=== PATIENT | female | born 1955 | race Caucasian/White ===

== ENCOUNTER → 2018-10-26 15:30 | Outpatient (CLI) | payer OTHER, SELFPAY ==
[2018-10-26 16:18] LABS: CKMB Relative Index 1.4 U/L (0-4.0); Creatine Kinase 69 U/L (26-192); Troponin I < 0.02 ng/ml (0.00-0.06)
[2018-10-26 18:35] LABS: Alanine Aminotransferase 29 U/L (12-78); Albumin/Globulin Ratio 1.3 (1.1-1.8); Alkaline Phosphatase 110 U/L (46-116); Anion Gap 12.8 mEq/L (5-15); Aspartate Amino Transferase 20 U/L (15-37); Bilirubin,Total 0.4 mg/dL (0.2-1.0); Blood Urea Nitrogen 20 mg/dL (7-18); Calcium 10.4 mg/dL (8.5-10.1); Carbon Dioxide 29 mmol/L (21.0-32.0); Chloride 103 mmol/L (98-107); Creatinine,Serum 0.69 mg/dL (0.55-1.02); Estimated Glomerular Filt Rate 86 ml/min (>60); GFR (African American) 104 ML/MIN (>60); Globulin 3.2 gm/dl (1.3-3.2); Glucose 88 mg/dL (74-106); Potassium 4.8 mmoL/L (3.5-5.1); Sodium 140 mmol/L (136-145); Total Protein,Serum 7.2 gm/dL (6.4-8.2)
[2018-10-28 08:52] LABS: Vitamin B12 606 pg/mL (232-1245); Vitamin D 25 Hydroxy 46.5 ng/mL (30.0-100.0)
== END ==
PROVIDERS: Visit Provider Physician Assistant
DX: R07.89 Other chest pain (principal); R53.83 Other fatigue; R06.83 Snoring
CPT/HCPCS: 36415; 80053; 82550; 82553; 82607; 82652; 84484; 93005

== ENCOUNTER → 2020-03-13 08:03 | Outpatient (CLI) | payer SELFPAY ==
--- NOTE | 2020-03-13 08:03 | CT_ITS ---
PROCEDURE: CT HEART W CALCIUM SCORE CLINICAL HISTORY: chest pain COMPARISON: No exams were available for comparison TECHNIQUE: Axial images obtained with sagittal and coronal reformats. All CT scans at the facility use one or more dose reduction, viz: automated exposure control, ma/kV adjustment per patient size (including targeted exams where dose is matched to indication, i.e. head), or iterative reconstruction technique. FINDINGS: The coronary artery calcium score is 26 indicating mild calcific plaque burden with moderate cardiovascular disease risk. There is minimal thickening of the pericardium anteriorly IMPRESSION: Mild calcific plaque burden with moderate cardiovascular disease risk Dictated b Chase Wisdom MD 03/13/2020 15:34 Chase Wisdom MD in [place] 03/13/2020 15:34
== END ==
PROVIDERS: PCP Family Medicine; Visit Provider Internal Medicine Cardiovascular Disease
DX: R06.00 Dyspnea, unspecified (principal); R07.9 Chest pain, unspecified
CPT/HCPCS: 75571

== ENCOUNTER → 2020-03-23 09:47 | Outpatient (CLI) | payer OTHER, SELFPAY ==
[2020-03-23 13:03] LABS: Coronavirus 19 IgG Antibody Negative (Negative); Coronavirus 19 IgM Antibody Negative (Negative)
== END ==
PROVIDERS: Visit Provider Internal Medicine Gastroenterology
DX: Z01.818 Encounter for other preprocedural examination (principal); Z12.11 Encounter for screening for malignant neoplasm of colon
CPT/HCPCS: 36415; 86328

== ENCOUNTER 2020-03-25 09:26 | Day surgery (SDC) | payer OTHER, SELFPAY ==
[2020-03-19 10:01] VITALS: BMI 23.3
[2020-03-25] VITALS (7 sets, daily range): BP systolic 72–159; BP diastolic 41–82; PULSE 59–79; RESP 16–18; TEMP 36.1–36.2; O2SAT 96–99
--- NOTE | 2020-03-25 10:54 | P.PCN_ITS ---
[facility] Procedure Note Procedure Note:: Colonoscopy Procedure Report: Colonoscopy with cold snare polypectomy Endoscopist: Keith Rothman II, MD Referring physician: Humza Echols MD Date of Procedure: March 25, 2020 Equipment: Olympus 180 variable stiffness pediatric colonoscope Sedation: MAC sedation Indication: Mrs. Sinclair is a 64-year-old female who is here for follow-up screening/surveillance colonoscopy secondary to a personal history of colon polyps. This is her fourth colonoscopy and her last colonoscopy was 5 years ago at which time a polyp was removed. She states that on each prior colonoscopy she has had one polyp which was removed. She does state that her mother had uterine cancer at age 84. The patient reports no abdominal pain, weight loss, change in her bowel habits or rectal bleeding. She does take a probiotic daily that does help to keep her bowel function regular. Procedure: Prior to the procedure, a history and physical exam was performed, and patient's medications and allergies were reviewed. The risks, benefits and alternatives of the sedation and procedure were discussed with the patient. All questions were answered and informed consent was obtained. The patient was brought to the procedure room. Patient identification and proposed procedure were verified by the physician and the nurse. The patient was placed in a left lateral decubitus position and the scope was passed under direct vision. Throughout the procedure, the patient's blood pressure, pulse, and oxygen saturations were mo nitored continuously. The colonoscopy was accomplished without difficulty. The patient tolerated the procedure well. Findings: On digital rectal examination there was normal rectal tone. There were no external hemorrhoids. The colonoscope was introduced through the anal canal to the rectum and advanced to the cecum. The ileocecal valve and appendiceal orifice were identified. The scope was advanced a short distance into the ileum which appeared grossly normal. The scope was then withdrawn into the colon. There was a diminutive 5 mm polyp in the cecum. There was another 3 mm polyp in the descending colon. Both of these polyps were removed via cold snare polypectomy. The remainder of the ascending, transverse and descending colon were normal. There were scattered diverticuli throughout the descending and sigmoid colon (LEFT colon). The rectum itself was normal. Upon retroflexion within the rectum there were grade 1-2 internal hemorrhoids. The preparation was excellent throughout with [place] Preparation Score of 9. The cecal time was 12 minutes. Impression: 1. Diminutive colonic polyps x2 2. Left-sided diverticulosis 3. Grade 1-2 internal hemorrhoids Plan: I will follow up the polyp pathology and recommend repeat colonoscopy again in 5 -10 years based upon the polyp histology. I would encourage fiber supplementation on a long-term daily maintenance basis.
--- NOTE | 2020-03-25 11:05 | HMH.ANESCL ---
[facility] Anesthesia Checklist - Patient Identification Patient Identification: Arm Band, Verbal (Name & ) - Structural Data Admitted From: Home Planned Operative Procedure/s: Colonoscopy Consent for Planned Operative Procedure(s) Verified: Yes Verified Documents: Surgical Consent, History and Physical - NPO Status Verified Time NPO: 00:00 - Chart Verification Results Verified: None - Additional verifications Patient : No Anesthesia Reactions: No - Airway Assessment C-Spine Mobility Assessed: Yes TMJ Mobility Assessed: Yes Dentition: Good Dentition - Neurological Assessment Level of Consciousness: Awake, Alert, Appropriate, Follows Commands Hx Seizures: No Numbness or tingling in extremities: No - Anesthesia Plan Anesthesia Risk discussed: Yes Anesthesia Plan: Verified ASA Class: III Anesthesia Type: MAC [facility] History I have reviewed the patient's past medical history: Yes Medical History: Reports:: Cancer (BREAST RIGHT X2), Hypertension Denies:: Diabetes Mellitus Type 1, Diabetes Mellitus Type 2, Internal Pacemaker, MRSA, Seizures *Have you ever received a pneumonia vaccine?: No *Have you received a flu vaccine this season?: Yes Comment:: BRYANNA Anesthesia experience/problems:: No prior complications Laterality Cases: Right: Breast Biopsy, Lumpectomy, Bilateral: Tonsillectomy Other Surgeries: No: Pacemaker Amputation: No Fractures: No - *Social History Last grade of school completed: Advanced degree Smoking Status: Former smoker #Yrs smoked (if former smoker): 37 Alcohol Intake: current Alcohol Intake Frequency:: a few times a week Substance Use Type: former substance user, marijuana *Occupational Status:: retired Housing: house *Travel in the last 8 weeks: None Family Hx:: Cancer, Hypertension, Stroke
== END 2020-03-25 11:50 | disposition home or self-care (01) ==
LOC: OUTP 09:27
PROVIDERS: PCP Family Medicine; Visit Provider Internal Medicine Gastroenterology
PROC: 0DJD8ZZ Inspection of Lower Intestinal Tract, Via Natural or Artificial Opening Endoscopic (ICD-10-PCS; CPT 45378; principal; 2020-03-25 10:30)
DX: Z12.11 Encounter for screening for malignant neoplasm of colon (principal); K63.5 Polyp of colon; K57.30 Diverticulosis of large intestine without perforation or abscess without bleeding; K64.0 First degree hemorrhoids; Z80.59 Family history of malignant neoplasm of other urinary tract organ; I10 Essential (primary) hypertension; Z85.3 Personal history of malignant neoplasm of breast; Z90.89 Acquired absence of other organs; Z87.891 Personal history of nicotine dependence; F12.11 Cannabis abuse, in remission; Z82.3 Family history of stroke; Z82.49 Family history of ischemic heart disease and other diseases of the circulatory system
CPT/HCPCS: 45385; J2704

== ENCOUNTER → 2020-11-11 18:11 | Outpatient (CLI) | payer OTHER, SELFPAY ==
[2020-11-11 19:15] LABS: Alanine Aminotransferase 18 U/L (12-78); Albumin Level 4.5 g/dl (3.5-5.0); Albumin/Globulin Ratio 1.7 (1.1-1.8); Alkaline Phosphatase 134 U/L (38-126); Amylase 58 U/L (30-110); Anion Gap 12.4 mEq/L (5-15); Aspartate Amino Transferase 25 U/L (14-36); Bilirubin,Total 0.4 mg/dl (0.2-1.3); Blood Urea Nitrogen 14 mg/dl (7-17); Calcium 9.8 mg/dl (8.4-10.2); Carbon Dioxide 27 mmol/L (22.0-30.0); Chloride 103 mmol/L (98-107); Estimated Glomerular Filt Rate 84 ml/min (>60); GFR (African American) 102 ML/MIN (>60); Globulin 2.6 g/dL (1.3-3.2); Glucose 100 mg/dl (74-100); Lipase 110 U/L (23-300); Potassium 4.4 mmoL/L (3.5-5.1); Sodium 138 mmol/L (136-145); Total Protein,Serum 7.1 g/dl (6.3-8.2)
== END ==
PROVIDERS: Visit Provider Family Medicine
DX: I25.10 Atherosclerotic heart disease of native coronary artery without angina pectoris (principal); E78.5 Hyperlipidemia, unspecified; I10 Essential (primary) hypertension
CPT/HCPCS: 80053; 82150; 83690

== ENCOUNTER → 2020-12-03 09:09 | Outpatient (CLI) | payer SELFPAY ==
--- NOTE | 2020-12-03 09:11 | US_ITS ---
PROCEDURE: US ABDOMEN LIMITED CLINICAL INDICATION: ABD PAIN, ACUTE, RUQ COMPARISON: US RUQ US RUQ-(ABD LTD)1ORGAN/QUAD/FU from 06/11/2014 FINDINGS: PANCREAS: Unremarkable. No obvious mass or abnormal fluid collection. No ductal dilatation LIVER: No focal liver lesions demonstrated. Homogeneous echogenicity. No intrahepatic biliary ductal dilatation evident. There is appropriate direction of blood flow within a non dilated portal vein RIGHT KIDNEY: Unremarkable. Normal size and echogenicity. No hydronephrosis GALLBLADDER: No gallstones, gallbladder wall thickening, pericholecystic fluid, or biliary dilatation. IMPRESSION: Unremarkable limited abdominal ultrasound as detailed above disc Dictated by: Chase Wisdom MD 12/03/2020 17:11 Chase Wisdom MD in [place] 12/03/2020 17:11
== END ==
PROVIDERS: PCP Family Medicine; Visit Provider Nurse Practitioner Family
DX: R10.11 Right upper quadrant pain (principal)
CPT/HCPCS: 76705

== ENCOUNTER → 2021-06-23 14:48 | Outpatient (CLI) | payer MEDICARE, OTHER, SELFPAY ==
[2021-06-23 15:27] LABS: Adenovirus,PCR Not Detected (NotDetected); Bordetella Pertussis Not Detected (NotDetected); Chlamydophila Pneumoniae, PCR Not Detected (NotDetected); Coronavirus 19, PCR Not Detected (NotDetected); Coronavirus 229E Not Detected (NotDetected); Coronavirus NL63 Not Detected (NotDetected); Coronavirus OC43 Not Detected (NotDetected); Coronovirus HKU1,PCR Not Detected (NotDetected); Human Metapneumovirus Not Detected (NotDetected); Influenza A, PCR Not Detected (NotDetected); Influenza AH1, 2009 Not Detected (NotDetected); Influenza AH1, PCR Not Detected (NotDetected); Influenza AH3,PCR Not Detected (NotDetected); Influenza B, PCR Not Detected (NotDetected); Mycoplasma Pneumoniae, PCR Not Detected (NotDetected); Parainfluenza 1, PCR Not Detected (NotDetected); Parainfluenza 2, PCR Not Detected (NotDetected); Parainfluenza 3, PCR Not Detected (NotDetected); Parainfluenza 4, PCR Not Detected (NotDetected); Respiratory Syncytial Virus Not Detected (NotDetected)
[2021-06-23 16:29] LABS: Basophils # 0.1 K/mm3 (0-0.2); Basophils % 0.9 % (0.1-2.0); Eosinophils # 0.2 K/mm3 (0.0-0.4); Eosinophils % 2.2 % (0.1-12.0); Hematocrit 41.3 % (37.0-47.0); Hemoglobin 13.7 g/dL (12.2-16.2); Lymphocytes # 2.7 K/mm3 (0.7-4.5); Lymphocytes % 34.6 % (10-50); Mean Corpuscular HGB Conc 33.2 g/dL (31.8-35.4); Mean Corpuscular Hemoglobin 31.1 pg (27.0-31.2); Mean Corpuscular Volume 93.7 fl (81-99); Mean Platelet Volume 8.5 fl (7.4-10.4); Monocytes # 0.4 K/mm3 (0.1-1.0); Monocytes % 5.5 % (1.7-9.3); Neutrophils # 4.4 K/mm3 (1.8-7.8); Neutrophils % 56.7 % (37.0-80.0); Platelet Count 305 K/mm3 (142-424); Red Cell Distribution Width 14.2 % (11.5-17.5); White Blood Count 7.7 K/mm3 (4.8-10.8)
[2021-06-23 17:18] LABS: Rhinovirus/Enterovirus Detected (NotDetected)
== END ==
PROVIDERS: PCP Family Medicine; Visit Provider Family Medicine
DX: Z20.822 Contact with and (suspected) exposure to COVID-19 (principal); B34.1 Enterovirus infection, unspecified
CPT/HCPCS: 85025; 87581; 87632; 87798; C9803; U0003; U0005

== ENCOUNTER → 2021-07-23 16:52 | Outpatient (CLI) | payer MEDICARE, OTHER, SELFPAY | PROVIDERS: PCP Family Medicine; Visit Provider Nurse Practitioner Family | DX: G47.33 Obstructive sleep apnea (adult) (pediatric) (principal); G47.00 Insomnia, unspecified; R06.83 Snoring; R40.0 Somnolence | CPT/HCPCS: G0399 ==

== ENCOUNTER → 2021-07-24 07:10 | Outpatient (CLI) | payer MEDICARE, OTHER, SELFPAY ==
--- NOTE | 2021-07-24 | CA_ITS ---
APPROVED REPORT Exam: Exercise Treadmill Technologist: Milagro Spence, Ht: 5 ft 6 in Wt: 153 lbs BSA: 1.78 m2 HR: 58 bpm BP: 162/78 mmHg Rhythm: NSR, PVC Medical History Medical History: HTN Medications: Omeprazole,,,,, Aspirin,,,,, Latanoprost,,,,, Losartan HCTZ,,,,, Toprol XL,,,,, Multivitamin,,,,, Cardiac Risk Factors: HTN Stress Test Details Test: Harrison HR Resting HR: 68 bpm Max Heart Rate (APMHR): 155.216265 bpm Max HR Achieved: 126 bpm Target HR (85% APMHR): 131.773772 bpm % of APMHR: 81.29 Recovery HR: 98 bpm BP Resting BP: 156/83 mmHg Max BP: 204/80 mmHg Recovery BP: 206.0/80.0 mmHg ECG Resting ECG: NSR, PVC Clinical Exercise duration: 09:01 min Highest Stage Achieved: Exercise capacity: 10.1 METs Stress ECG Conclusion Pt exercised on harrison protocol for a total of 9 minutes. No CP noted. Occasional PVC noted. Allowing for motion artifact, the ST response to exercise appears to be within normal. Normal GXT to HR achieved, 81% of PM. Blunted HR response on beta felipe. Myoview images reported separately. Test Summary Stage 3 02:00 14.0 3.4 122 . . . Myoview Injected REST . . . . . . . Standing REST 04:45 0.0 0.0 68 . 156/ 83 . . Stage 1 01:00 10.0 1.7 91 . . . . Stage 1 02:00 10.0 1.7 96 . . . . Stage 1 03:00 10.0 1.7 93 . 172/ 96 . . Stage 2 01:00 12.0 2.5 101 . . . . Stage 2 02:00 12.0 2.5 102 . . . . Stage 2 03:00 12.0 2.5 107 . 188/ 88 . . Stage 3 01:00 14.0 3.4 119 . . . . Stage 3 . . . . . . . Myoview Injected Stage 3 02:00 14.0 3.4 122 . . . . Stage 3 03:00 14.0 3.4 126 . . . . Stage 4 00:01 16.0 4.2 126 . . . Stop exercise at 09:01 RECOVERY 01:00 0.0 0.0 97 . . . . RECOVERY 02:00 0.0 0.0 96 . 204/ 80 . . RECOVERY 03:00 0.0 0.0 85 . 204/ 80 . . RECOVERY 04:00 0.0 0.0 79 . 155/ 80 . . RECOVERY 05:00 0.0 0.0 79 . 159/ 86 . . RECOVERY 05:18 0.0 0.0 81 . 159/ 86 . . Electronically signed by : Hernesto Kothari MD 07/24/2021 13:33:46
--- NOTE | 2021-07-24 07:11 | NM_ITS ---
APPROVED REPORT Exam: Nuclear Stress Test Patient Location: Outpatient Stress Tech: Milagro CASTANEDA Tech:Alejandra Almonte GORGEChanell RT(R)(N) Ht: 5 ft 5 in Wt: 150 lbs Bra Size: 38c HR: 58 bpm BP: 162/78 mmHg BSA: 1.75 m2 BMI: 24.9 History: short of breath..palpitations..fatigue Procedure: Patient exercised on Harrison protocol 9:00 minutes and sec, resting heart rate 58 bpm, resting blood pressure 162/78 mmHg, with exercise maximum heart rate achived was 126 bpm which is 81 % of the maximum predicted heart rate and blood pressure was 206/80 mmHg. Test was stopped due to soa..fatigue. Patient denied any complaint of chest pain. Patient has good exercise capacity, achieved 10.1 METs of workload on treadmill, the blood pressure response to exercise was Hypertensive. Electrocardiogram Resting electrocardiogram shows sinus rhythm, with exercise there is less than 1.[address] segment depression noted from the baseline EKG. The EKG portion of the exercise Myoview is nondiagnostic as patient did not achieve the target heart rate. Cardiac Stress and Resting SPECT Images: Cardiac Stress and Resting SPECT images were obtained using technetium 99m Myoview 32.9 mCi stress and 10.14 mCi at rest. Gated SPECT for analysis of segmental wall motion and calculation of the ejection fraction also done. Cardiac stress and resting SPECT images show a mild fixed defect in the anterior wall with normal contractility on the gated SPECT is likely secondary to soft tissue attenuation from the breast no reversible ischemia seen. Computer derived ejection fraction is 59% with no regional wall motion abnormality. Conclusion: 1. The EKG portion of the exercise Myoview was nondiagnostic as patient did not achieve the target heart rate, patient has good exercise capacity achieved 10.1 METs of workload on treadmill, the blood pressure response to exercise was hypertensive there was no exercise-induced chest discomfort. 2. No scintigraphic evidence of reversible ischemia seen, computer derived ejection fraction is 59% with no regional wall motion abnormality, right ventricle is normal size and contractility. Electronically signed by : Hernesto Kothari MD 07/24/2021 13:46:27
--- NOTE | 2021-07-24 08:04 | CA_ITS ---
APPROVED REPORT EXAM: Comprehensive 2D, Doppler, and color-flow Echocardiogram Cattle Rancher: Joslyn Landa RVT Ht: 5 ft 6 in Wt: 153lbs BSA: 1.78 BP: 125/67 mmHg Indications: CAD,CP,MURMUR,SOA,DENG,HTN,EX SMOKER 2D Dimensions LVOT 2.02 cm (M/F) 1.5-2.5 LA Volume 29.10 mL LA Volume Index 16.34 mL/m2 (M/F) 16-34 M-Mode Dimensions RVDd 2.07 cm (0.9-2.6) LA Diam 3.79 cm (1.9-4.0) LVDd 4.75 cm (3.5-5.7) Ao Diam 3.09 cm (2.0-3.7) LVDs 2.82 cm (3.5-5.7) IVSd 0.93 cm (0.6-1.1) PWd 0.57 cm (0.6-1.1) EF (Teich) 71.30% FS 40.60% EDV (Teich) 104.90 mL TAPSE 2.97 (<1.7) ESV (Teich) 30.10 mL LV Diastology E Decel Time 150.00 (160-240 msec) E/A Ratio 0.8 MED E' 5.90 (< 7 cm/sec) E'/MED E' Ratio 12.95 (>14) LAT E' 9.40 (<10 cm/sec) E/LAT E' Ratio 8.13 (>14) Aortic Valve AI PHT 704.00 ms Mitral Valve MV E Max Edinson. 76.00 (40-130 cm/s) MV A Velocity 94.00 (40-130 cm/s) E/A Ratio 0.81 MV Decel. Time 150.00 (160-240 ms) MV PHT 44.00 ms Pulmonary Valve PV Peak Velocity 72.00 (50-150 cm/s) Tricuspid Valve TR P. Velocity 252.00 cm/s RAP Estimate 10.00 mmHg RVSP 35.40 mmHg Left Ventricle Left atrium is mildly enlarged, left ventricle is normal size, mild concentric left ventricular ejection fraction 55% with no regional wall motion abnormality, grade 1 diastolic dysfunction seen without tissue Doppler evidence of raise left atrial pressure. Right Ventricle Right atrium and right ventricle are mildly enlarged with normal contractility. Aortic Valve Aortic valve is minimally thickened and calcified without aortic stenosis, there is mild aortic insufficiency. Mitral Valve Mitral valve is grossly normal, there is mild mitral regurgitation. Tricuspid Valve Tricuspid grossly normal, there is mild tricuspid regurgitation, tricuspid regurgitation jet velocity is inadequate for calculation of the right ventricular systolic pressure. Pulmonic Valve Pulmonic valve is poorly visualized. Great Vessels Aortic root is normal size. Inferior vena cava normal size with normal inspiratory collapse. Pericardium No significant pericardial effusion noted. Conclusion 1. Mild biatrial enlargement, normal left size, mild concentric left ventricular hypertrophy, visually estimated ejection fraction 55% with no regional wall motion abnormality, grade 1 diastolic dysfunction seen without tissue Doppler evidence of raise left atrial pressure. 2. Mild aortic, mild mitral and tricuspid regurgitation. 3. No significant pericardial effusion noted. 4. Inferior vena cava normal size with normal inspiratory collapse. Electronically signed by : Hernesto Kothari MD 07/24/2021 14:08:58
--- NOTE | 2021-07-24 08:04 | CA_ITS ---
APPROVED REPORT Bakery Deliverer: Joslyn Landa RVT Laterality: Bilateral Study Quality: Good Indications: left carotid bruit Risk Factors Hypertension: Smoking Doppler Spectral Velocity Analysis ECA (R) 80.20/6.40 cm/s ECA (L) 59.90/8.80 cm/s dICA (R) 136.90/34.20 cm/s dICA (L) 112.60/31.40 cm/s Nela (R) 87.70/21.40 cm/s Nela (L) 92.80/26.30 cm/s pICA (R) 85.50/22.50 cm/s pICA (L) 74.90/18.20 cm/s dCCA (R) 66.30/13.90 cm/s dCCA (L) 64.20/11.80 cm/s pCCA (R) 88.80/11.80 cm/s pCCA (L) 113.30/15.00 cm/s Vert (R) 44.90/11.80 cm/s Vert (L) 42.80/12.80 cm/s ICA/CCA 2.06 ICA/CCA 1.75 Findings Study suggests less than 20% stenosis of the right internal cartoid artery. Study suggests less than 20% stenosis of the left internal cartoid artery. Antegrade flow seen bilateral vertebral arteries. Bilateral cartoid arteries are tortuous. Right thyroid nodules seen. Conclusion Study suggests less than 20% stenosis of the right internal cartoid artery. Study suggests less than 20% stenosis of the left internal cartoid artery. Antegrade flow seen bilateral vertebral arteries. Bilateral cartoid arteries are tortuous. Right thyroid nodules seen. Electronically signed by : Chase Wisdom MD 07/24/2021 16:12:08
== END ==
PROVIDERS: PCP Family Medicine; Visit Provider Nurse Practitioner Family
DX: E78.2 Mixed hyperlipidemia (principal); I10 Essential (primary) hypertension; I20.9 Angina pectoris, unspecified; R09.89 Other specified symptoms and signs involving the circulatory and respiratory systems; R06.09 Other forms of dyspnea
CPT/HCPCS: 78452; 93017; 93306; 93880; A9502

== ENCOUNTER → 2021-08-05 09:51 | Outpatient (CLI) | payer MEDICARE, OTHER, SELFPAY ==
--- NOTE | 2021-08-05 09:55 | XR_ITS ---
PROCEDURE INFORMATION: Exam: XR Chest Exam date and time: 08/05/2021 9:55 AM Age: 66 years old Clinical indication: Cough and shortness of breath; Additional info: Covid outpatient TECHNIQUE: Imaging protocol: XR of the chest. Views: 1 view. COMPARISON: No relevant prior studies available. FINDINGS: Lungs: COPD and interstitial prominence. No acute infiltrate. Pleural spaces: No pleural effusion. Heart/Mediastinum: Normal configuration of the heart. Bones/joints: Degenerative change. IMPRESSION: COPD and interstitial prominence.
[2021-08-05 10:39] LABS: Adenovirus,PCR Not Detected (NotDetected); Bordetella Pertussis Not Detected (NotDetected); Chlamydophila Pneumoniae, PCR Not Detected (NotDetected); Coronavirus 19, PCR Not Detected (NotDetected); Coronavirus 229E Not Detected (NotDetected); Coronavirus NL63 Not Detected (NotDetected); Coronavirus OC43 Not Detected (NotDetected); Coronovirus HKU1,PCR Not Detected (NotDetected); Human Metapneumovirus Not Detected (NotDetected); Influenza A, PCR Not Detected (NotDetected); Influenza AH1, 2009 Not Detected (NotDetected); Influenza AH1, PCR Not Detected (NotDetected); Influenza B, PCR Not Detected (NotDetected); Mycoplasma Pneumoniae, PCR Not Detected (NotDetected); Parainfluenza 1, PCR Not Detected (NotDetected); Parainfluenza 2, PCR Not Detected (NotDetected); Parainfluenza 3, PCR Not Detected (NotDetected); Parainfluenza 4, PCR Not Detected (NotDetected); Respiratory Syncytial Virus Not Detected (NotDetected); Rhinovirus/Enterovirus Not Detected (NotDetected)
[2021-08-05 10:51] LABS: Basophils # 0.1 K/mm3 (0-0.2); Basophils % 1.3 % (0.1-2.0); Hematocrit 47.8 % (37.0-47.0); Hemoglobin 15.3 g/dL (12.2-16.2); Lymphocytes # 0.7 K/mm3 (0.7-4.5); Lymphocytes % 10.5 % (10-50); Mean Corpuscular HGB Conc 32.1 g/dL (31.8-35.4); Mean Corpuscular Volume 93.4 fl (81-99); Mean Platelet Volume 8.4 fl (7.4-10.4); Monocytes # 0.3 K/mm3 (0.1-1.0); Monocytes % 4.4 % (1.7-9.3); Neutrophils # 5.4 K/mm3 (1.8-7.8); Neutrophils % 83.8 % (37.0-80.0); Platelet Count 294 K/mm3 (142-424); Red Blood Count 5.11 M/mm3 (4.20-5.40); Red Cell Distribution Width 13.3 % (11.5-17.5); White Blood Count 6.4 K/mm3 (4.8-10.8)
[2021-08-05 12:47] LABS: Influenza AH3,PCR Detected (NotDetected)
== END ==
PROVIDERS: PCP Nurse Practitioner; Visit Provider Nurse Practitioner
DX: Z20.822 Contact with and (suspected) exposure to COVID-19 (principal)
CPT/HCPCS: 36415; 71045; 85025; 87581; 87632; 87798; C9803; U0003; U0005

== ENCOUNTER 2021-08-05 10:13 | Emergency (ER) | payer MEDICARE, OTHER, SELFPAY ==
[2021-08-05 10:39] VITALS: BP 149/82; PULSE 103; RESP 18; TEMP 36.6; O2SAT 96; BMI 25.0
--- NOTE | 2021-08-05 10:40 | HMH.EDUTC ---
[facility] [place] Disposition Clinical Impression: Influenza A Acute bronchitis Qualifiers: Bronchitis organism: unspecified organism Qualified Code(s): J20.9 - Acute bronchitis, unspecified Disposition: Home, Self-Care Condition on Discharge: Good Instructions: DI for Acute Bronchitis, DI for COVID-19 (Suspected or Confirmed ), Preventing the Spread of Coronavirus Discharge Instructions Additional Instructions: Drink plenty of fluids. Take tylenol or ibuprofen for pain or fever. Take the medications that were prescribed by your doctor as directed. Follow up with your regular doctor. GO TO THE ER FOR ANY WORSENING SYMPTOMS Quarantine until you know the results of your covid-19 test. If it is positive, the health department should call you and give you further instructions about your length of Quarantine and other things. Notify your school or workplace of your results and follow their instructions regarding return to work/school. Prescriptions: Fluticasone Propionate [Flonase 50mcg nasal spray 16gm] 2 spr NS DAILY 30 Days #120 each Transmission [facility]: [facility] Montelukast Sodium 10 mg PO DAILY 90 Days #90 tab Transmission Status: [facility] Referrals: Partha Echols MD [Primary Care Provider] - Time of Disposition: 11:27 Medical Decision Making - Medical Records Medical records reviewed: No: I reviewed the patient's medical records. - Simon Inquiry Pt receiving controlled substance: No Vital Signs: 08/05/21 10:39 08/05/21 10:45 Temperature 97.8 F 97.8 F Temperature Source Oral Pulse Rate 103 H Pulse Rate [Left] 103 H Respiratory Rate 18 18 Blood Pressure 149/82 H Blood Pressure [Right Arm] 149/82 H Blood Pressure Mean [Right Arm] 104 02 Sat by Pulse Oximetry 96 - Lab Data Lab results reviewed: Yes: I reviewed the patient's lab results. [facility] [place] HPI - General Stated complaint: congestion,SOA Time Seen by Provider: 08/05/21 10:41 - History of Present Illness Provider Complaint: She came in to have her lungs listened to and her vital signs checked. She states that she has had multiple test this morning already that were ordered by her primary care physician, but she is congested and wants someone to check her lungs. She states that she feels like she has the flu. She started feeling like this around 3 days ago. She has been very busy with selling her house so she has not had time to get checked before today. She has been fully vaccinated for covid-19. - Related Data Home Medications Medication Instructions Recorded Confirmed rwsvlcum-vhebiai-dmzm-lutein tablet 1 mcg PO DAILY tab 10/27/18 07/17/21 Aspirin 81 mg PO DAILY 03/19/20 07/17/21 latanoprost 0.005 % eye drops 1 drp OPHTHALMIC HS 07/17/21 07/17/21 Previous Rx's Medication Instructions Recorded metoprolol succinate 25 mg 25 mg PO DAILY #30 tab 01/16/21 tablet,extended release 24 hr losartan 50 mg-hydrochlorothiazide 1 tab PO DAILY #30 tab 02/27/21 12.5 mg tablet omeprazole 40 mg capsule,delayed See Rx Instructions .ROUTE 04/08/21 release .COMPLEX #90 capsule Fluticasone Propionate [Flonase 2 spr NS DAILY 30 Days #120 each 08/05/21 50mcg nasal spray 16gm] Montelukast Sodium 10 mg PO DAILY 90 Days #90 tab 08/05/21 Oseltamivir Phosphate [Tamiflu 75 mg PO BID #10 cap 08/05/21 75mg Capsule] Allergies Allergy/AdvReac Type Severity Reaction Status Date / Time No Known Allergies Allergy Verified 07/17/21 10:08 [facility] History - Hepatitis A Screen Attestation statement:: This patient has been screened for Hepatitis A risk factors. I have reviewed the patient's past medical history: Yes Medical History: Reports:: Cancer, Hypertension Denies:: Diabetes Mellitus Type 1, Diabetes Mellitus Type 2, Internal Pacemaker, MRSA, Seizures Comment: BRYANNA Laterality Cases: Right: Breast Biopsy, Lumpectomy, Bilateral: Tonsillectomy Other Surgeries: No:
[2021-08-05 10:45] VITALS: BP 149/82; PULSE 103; RESP 18; TEMP 36.6
== END 2021-08-05 11:38 | disposition home or self-care (01) ==
PROVIDERS: Emergency Provider Nurse Practitioner Family; PCP Family Medicine
DX: J10.1 Influenza due to other identified influenza virus with other respiratory manifestations (principal)
CPT/HCPCS: G0463; 36415; 71045; 85025; 87581; 87632; 87798; 99202; C9803; U0003; U0005

== ENCOUNTER → 2022-06-29 14:24 | Outpatient (CLI) | payer MEDICARE, OTHER, SELFPAY ==
[2022-06-29 15:43] LABS: Coronavirus 19, PCR Not Detected (NotDetected); Influenza A, PCR Not Detected (NotDetected); Influenza B, PCR Not Detected (NotDetected)
[2022-06-29 15:55] LABS: Basophils # 0.1 K/mm3 (0-0.2); Eosinophils # 0.2 K/mm3 (0.0-0.4); Eosinophils % 2.4 % (0.1-12.0); Hematocrit 41.5 % (37.0-47.0); Hemoglobin 13.6 g/dL (12.2-16.2); Lymphocytes # 2.4 K/mm3 (0.7-4.5); Lymphocytes % 26.5 % (10-50); Mean Corpuscular HGB Conc 32.8 g/dL (31.8-35.4); Mean Corpuscular Hemoglobin 30.3 pg (27.0-31.2); Mean Corpuscular Volume 92.4 fl (81-99); Mean Platelet Volume 8.2 fl (7.4-10.4); Monocytes # 0.5 K/mm3 (0.1-1.0); Monocytes % 5.8 % (1.7-9.3); Neutrophils # 5.9 K/mm3 (1.8-7.8); Neutrophils % 64.3 % (37.0-80.0); Platelet Count 294 K/mm3 (142-424); Red Blood Count 4.49 M/mm3 (4.20-5.40); Red Cell Distribution Width 13.9 % (11.5-17.5); White Blood Count 9.1 K/mm3 (4.8-10.8)
== END ==
PROVIDERS: PCP Family Medicine; Visit Provider Family Medicine
DX: Z20.822 Contact with and (suspected) exposure to COVID-19 (principal)
CPT/HCPCS: 36415; 85025; C9803; U0003; U0005

== ENCOUNTER → 2022-11-17 09:28 | Outpatient (CLI) | payer MEDICARE, OTHER, SELFPAY ==
[2022-11-17 10:39] LABS: Basophils # 0.1 K/mm3 (0-0.2); Basophils % 0.6 % (0.1-2.0); Eosinophils # 0.2 K/mm3 (0.0-0.4); Eosinophils % 2.8 % (0.1-12.0); Hematocrit 46.1 % (37.0-47.0); Lymphocytes # 2.1 K/mm3 (0.7-4.5); Lymphocytes % 26.7 % (10-50); Mean Corpuscular HGB Conc 32.5 g/dL (31.8-35.4); Mean Corpuscular Hemoglobin 29.1 pg (27.0-31.2); Mean Corpuscular Volume 89.7 fl (81-99); Mean Platelet Volume 8.5 fl (7.4-10.4); Monocytes # 0.5 K/mm3 (0.1-1.0); Monocytes % 5.8 % (1.7-9.3); Neutrophils # 5.1 K/mm3 (1.8-7.8); Neutrophils % 64.1 % (37.0-80.0); Platelet Count 247 K/mm3 (142-424); Red Blood Count 5.14 M/mm3 (4.20-5.40); Red Cell Distribution Width 13.6 % (11.5-17.5)
[2022-11-17 10:47] LABS: Chloride 101 mmol/L (98-107); Sodium 137 mmol/L (136-145)
[2022-11-17 10:49] LABS: Alanine Aminotransferase 39 U/L (12-78); Albumin Level 4.4 g/dl (3.5-5.0); Alkaline Phosphatase 120 U/L (38-126); Aspartate Amino Transferase 31 U/L (14-36); Bilirubin,Indirect 0.6 mg/dL (0.0-0.9); Bilirubin,Total 0.6 mg/dl (0.2-1.3); Bilirubin,Unconjugated 0.7 mg/dL (0.0-1.1); Blood Urea Nitrogen 18 mg/dl (7-17); Carbon Dioxide 30 mmol/L (22.0-30.0); Cholesterol 136 mg/dl (140-200); Estimated Glomerular Filt Rate 72 ml/min (>60); GFR (African American) 87 ML/MIN (>60); Total Protein,Serum 7.3 g/dl (6.3-8.2); Triglycerides 83 mg/dl (30-150); VLDL Cholesterol 17 mg/dL (0-40)
[2022-11-17 10:50] LABS: Calcium 9.4 mg/dl (8.4-10.2); Chol/HDL Ratio 1.9 (1-3.5); Glucose 96 mg/dl (74-100); HDL Cholesterol 71 mg/dl (40-60); Magnesium 2.2 mg/dl (1.6-2.3)
[2022-11-17 11:07] LABS: Free T4 (Free Thyroxine) 0.97 ng/dl (0.78-2.19)
[2022-11-17 11:09] LABS: Troponin I < 0.01 ng/ml (0.00-0.034)
[2022-11-17 11:20] LABS: Thyroid Stimulating Hormone 2.19 uIU/mL (0.465-4.68)
== END ==
PROVIDERS: PCP Family Medicine; Visit Provider Nurse Practitioner
DX: E78.2 Mixed hyperlipidemia (principal); I10 Essential (primary) hypertension; I25.10 Atherosclerotic heart disease of native coronary artery without angina pectoris; I49.8 Other specified cardiac arrhythmias; R00.2 Palpitations; R06.00 Dyspnea, unspecified; R07.9 Chest pain, unspecified; R42 Dizziness and giddiness; R53.83 Other fatigue
CPT/HCPCS: 36415; 80048; 80061; 80076; 83735; 84439; 84443; 84484; 85025; 93306

== ENCOUNTER 2022-12-04 18:44 | Emergency (ER) | payer MEDICARE, OTHER, SELFPAY ==
--- NOTE | 2022-12-04 18:41 | ECG_ITS ---
APPROVED REPORT Exam: Resting ECG HR:73 bpm ECG Measurements Heart Rate 73 AXES WI 192 P 59 QRSd 102 QRS -15 QT 395 T 66 QTc 421 Conclusion SINUS RHYTHM MODERATE VOLTAGE CRITERIA FOR LVH, CONSIDER NORMAL VARIANT [MEETS CRITERIA IN ONE OF: R(aVL), S(V1), R(V5), R(V5/V6)+S(V1)] BORDERLINE ECG UNCONFIRMED REPORT Electronically signed by : Galen Mir MD 12/05/2022 15:30:17
[2022-12-04 18:44] VITALS: BP 199/96; PULSE 76; RESP 20; TEMP 36.8; O2SAT 99; BMI 26.6
--- NOTE | 2022-12-04 18:49 | XR_ITS ---
PROCEDURE INFORMATION: Exam: XR Chest Exam date and time: 12/04/2022 7:09 PM Age: 67 years old Clinical indication: Other: Weakness TECHNIQUE: Imaging protocol: Radiologic exam of the chest. Views: 2 views. COMPARISON: CR XR CHEST PORTABLE 08/05/2021 9:59 AM FINDINGS: Lungs: Unremarkable. No consolidation. Pleural spaces: Unremarkable. No pleural effusion. No pneumothorax. Heart/Mediastinum: Unremarkable. No cardiomegaly. Bones/joints: Unremarkable. IMPRESSION: No acute findings.
[2022-12-04 18:59] LABS: Basophils % 0.5 % (0.1-2.0); Eosinophils # 0.1 K/mm3 (0.0-0.4); Eosinophils % 1.4 % (0.1-12.0); Hematocrit 43.8 % (37.0-47.0); Lymphocytes # 3.5 K/mm3 (0.7-4.5); Lymphocytes % 37.7 % (10-50); Mean Corpuscular Hemoglobin 28.9 pg (27.0-31.2); Mean Corpuscular Volume 90.2 fl (81-99); Mean Platelet Volume 7.8 fl (7.4-10.4); Monocytes # 0.5 K/mm3 (0.1-1.0); Monocytes % 5.6 % (1.7-9.3); Neutrophils # 5.1 K/mm3 (1.8-7.8); Neutrophils % 54.9 % (37.0-80.0); Platelet Count 254 K/mm3 (142-424); Red Blood Count 4.86 M/mm3 (4.20-5.40); Red Cell Distribution Width 13.8 % (11.5-17.5); White Blood Count 9.2 K/mm3 (4.8-10.8)
[2022-12-04 19:00] VITALS: BP 166/87; PULSE 70; RESP 14; O2SAT 97
[2022-12-04 19:08] LABS: Alanine Aminotransferase 48 U/L (12-78); Albumin Level 4.5 g/dl (3.5-5.0); Albumin/Globulin Ratio 1.5 (1.1-1.8); Alkaline Phosphatase 121 U/L (38-126); Anion Gap 13.6 mEq/L (5-15); Aspartate Amino Transferase 43 U/L (14-36); Bilirubin,Total 0.5 mg/dl (0.2-1.3); Blood Urea Nitrogen 13 mg/dl (7-17); Calcium 9.5 mg/dl (8.4-10.2); Carbon Dioxide 28 mmol/L (22.0-30.0); Chloride 99 mmol/L (98-107); Creatinine Clearance Estimated 63 mL/min (50-200); Estimated Glomerular Filt Rate 84 ml/min (>60); GFR (African American) 101 ML/MIN (>60); Glucose 115 mg/dl (74-100); Potassium 3.6 mmoL/L (3.5-5.1); Sodium 137 mmol/L (136-145); Total Protein,Serum 7.5 g/dl (6.3-8.2)
--- NOTE | 2022-12-04 19:15 | PC.NURSE ---
Pt gone to RAD via wheelchair
--- NOTE | 2022-12-04 19:21 | PC.NURSE ---
Pt back from RAD
[2022-12-04 19:22] LABS: Troponin I < 0.01 ng/ml (0.00-0.034)
--- NOTE | 2022-12-04 19:22 | PC.NURSE ---
Pt up to restroom. Dr. De Los Santos advised he did not want a urine specimen at this time.
--- NOTE | 2022-12-04 19:24 | HMH.EDGENADL ---
Discharge Plan Disposition Patient Disposition: Home, Self-Care Condition: Good Chief Complaint: Anxiety Prescriptions Prescriptions: No Action fukacmoc-tsgithd-qral-lutein tablet 1 mcg PO DAILY latanoprost 0.005 % drops 1 drp OPHTHALMIC HS fluticasone propionate 50 mcg/actuation spray,suspension 2 spray NS DAILY PRN metoprolol succinate [Toprol XL] 25 mg tablet extended release 24 hr 25 mg PO DAILY Qty: 90 3RF losartan-hydrochlorothiazide 50-12.5 mg tablet 1 tab PO DAILY Qty: 90 3RF omeprazole 40 mg capsule,delayed release(DR/EC) See Rx Instructions .ROUTE .COMPLEX Qty: 90 3RF Dose Instruction: TAKE ONE CAPSULE BY MOUTH DAILY Rx Instructions: TAKE ONE CAPSULE BY MOUTH DAILY atorvastatin [Lipitor] 20 mg tablet 20 mg PO DAILY Qty: 90 3RF aspirin 81 MG tablet,chewable 81 mg PO DAILY montelukast 10 MG tablet 10 mg PO DAILY 90 Days Qty: 90 1RF Referrals Follow up/Referrals: Partha Echols MD [Primary Care Provider] - See instructions Activity Restrictions/Add. Instructions Additional Instructions/Restrictions: At this time was felt you are safe to be discharged home. If new or worsening symptoms please not hesitate to return for continued evaluation. Please follow-up with cardiology as discussed. Clinical Impressions Clinical Impression: Dysphoric mood Discharge ED Provider: Ameya De Los Santos General Adult HPI General Chief complaint: Anxiety Stated complaint: uneasiness Time Seen by Provider: 12/04/22 19:10 Mode of Arrival: Ambulatory Source of Information: Patient Limitations: No Limitations Description of Symptoms (Recalled from ER Triage Doc. by RN): pt c/o weakness,dizzy and anixety that started about 4pm this afternoon. pt states has been seen in er 2 weeks ago and seen billing department supervisor. pt denies chest pain History of Present Illness HPI narrative: Patient is a 67-year-old female with past medical history of fluttering heart, palpitations, anxiety, hiatal hernia who presents emergency department for evaluation of uneasiness. Patient has had waxing and waning symptoms over the last few weeks. She describes as a general uneasiness in her thorax. She does not have true chest pain. She has taken a Xanax prior to arrival which is prescribed to her and has had some resolution of symptoms. Per chart review recent echocardiography shows ejection fraction of 60 to 65% with grade 1 diastolic dysfunction. Patient has been compliant with her blood pressure medications. Denies cough, dysuria, abdominal pain, chest pain. No other acute complaints at this time. Related Data Home Medications Medication Instructions Recorded Confirmed ivhhqvlh-vgaqimr-vzkq-lutein tablet 1 mcg PO DAILY Supplement 10/27/18 11/17/22 aspirin 81 mg chewable tablet 81 mg PO DAILY Blood thinner 03/19/20 11/17/22 latanoprost 0.005 % eye drops 1 drp ophthalmic (eye) HS 07/17/21 11/17/22 fluticasone propionate 50 2 spray intranasal DAILY PRN 02/19/22 11/17/22 mcg/actuation nasal spray,suspension Previous Rx's Medication Instructions Recorded montelukast 10 mg tablet 10 mg PO DAILY 90 days #90 tabs 08/05/21 losartan 50 mg-hydrochlorothiazide 1 tab PO DAILY #90 tabs 08/24/22 12.5 mg tablet metoprolol succinate 25 mg 25 mg PO DAILY #90 tabs 08/24/22 tablet,extended release 24 hr (Toprol XL) omeprazole 40 mg capsule,delayed See Rx Instructions .Route 08/24/22 release .COMPLEX #90 caps atorvastatin 20 mg tablet (Lipitor) 20 mg PO DAILY #90 tabs 11/23/22 Allergies Allergy/AdvReac Type Severity Reaction Status Date / Time No Known Allergies Allergy Verified 11/17/22 08:46 [facility] Disclaimer: The information contained in this section may have been updated after the patient was seen, as this information can be updated by other users. Medical History (Updated 12/04/22 @ 19:46 by Ameya De Los Santos MD) Chest pain Dizziness Dyspnea Fatigue
[2022-12-04 19:30] VITALS: BP 171/80; PULSE 68; RESP 15; O2SAT 98
--- NOTE | 2022-12-04 19:58 | PC.NURSE ---
Dr. De Los Santos at [facility]
[2022-12-04 20:32] VITALS: BP 163/88; PULSE 64; RESP 16; TEMP 36.9; O2SAT 98
== END 2022-12-04 20:33 | disposition home or self-care (01) ==
PROVIDERS: Emergency Provider Emergency Medicine; PCP Family Medicine
DX: R53.1 Weakness (principal); R42 Dizziness and giddiness; F41.9 Anxiety disorder, unspecified; Z87.891 Personal history of nicotine dependence
CPT/HCPCS: 71046; 80053; 84484; 85025; 93005; 99285

== ENCOUNTER → 2022-12-08 11:50 | Outpatient (CLI) | payer MEDICARE, OTHER, SELFPAY | PROVIDERS: PCP Family Medicine; Visit Provider Physician Assistant | DX: E78.2 Mixed hyperlipidemia (principal); I10 Essential (primary) hypertension; I25.10 Atherosclerotic heart disease of native coronary artery without angina pectoris; I49.8 Other specified cardiac arrhythmias; R00.2 Palpitations; R06.00 Dyspnea, unspecified; R07.9 Chest pain, unspecified; R42 Dizziness and giddiness; R53.83 Other fatigue | CPT/HCPCS: 78452; 93017; A9502 ==

== ENCOUNTER 2023-04-15 09:27 | Day surgery (SDC) | payer MEDICARE, OTHER, SELFPAY ==
[2023-03-18 13:59] VITALS: BMI 27.3
[2023-04-15] VITALS (7 sets, daily range): BP systolic 132–154; BP diastolic 65–75; PULSE 49–58; RESP 16–18; TEMP 36.2–36.3; O2SAT 97–100
--- NOTE | 2023-04-15 10:32 | P.PNANES_ITS ---
[facility] Disclaimer: The information contained in this section may have been updated after the patient was seen, as this information can be updated by other users. Medical History Chest pain Dizziness Dyspnea Fatigue Fluttering heart Generalized anxiety disorder History of breast cancer Left carotid bruit Palpitations Surgical History History of colonoscopy History of lumpectomy of right breast Family History Father Coronary artery disease Stroke Mother Cancer Sister Cancer, Onset Age: 65 Social History Smoking Status: Former smoker pack-years: 37 second hand exposure: No alcohol intake: current substance use type: former substance user and marijuana current occupational status: retired Travel in the last 8 weeks: None ([place]) household members: none housing: house current occupational exposures/hazards: No caffeine: Yes [facility] Anesthesia Checklist Patient Identification Patient Identification: Arm Band Structural Data Admitted From: Home Planned Operative Procedure/s: EGD Consent for Planned Operative Procedure(s) Verified: Yes Verified Documents: Surgical Consent and History and Physical NPO Status Verified Time NPO: 00:00 Additional verifications Anesthesia Reactions: No Airway Assessment Mallampati Score:: Class I C-Spine Mobility Assessed: Yes TMJ Mobility Assessed: Yes Dentition: Good Dentition Neurological Assessment Level of Consciousness: Awake and Alert Anesthesia Plan Anesthesia Risk discussed: Yes Anesthesia Plan: Verified ASA Class: II Anesthesia Type: MAC
--- NOTE | 2023-04-15 11:02 | HMH.SCOPE ---
Procedure: Date: 04/15/23 Patient Date of :: 1955 Procedure Performed:: Diagnostic EGD Indications:: Belching, GERD Performing Provider:: Shane Telles MD Referring Provider:: Shirley Telles APRN Sedation:: Propofol Procedure:: The gastroscope was gently passed through the incisoral orifice into the oral cavity and under direct visualization the esophagus was intubated. The endoscope was passed down the esophagus, through the stomach, and into the duodenum. Color, texture, mucosa, and anatomy of the esophagus, stomach, and duodenum were carefully examined with the scope. Findings:: Oropharynx: normal Esophagus: normal EG Junction: intact at 40 cm, No evidence of hiatus hernia Cardia: normal Fundus: normal Body: normal Antrum: normal Duodenal bulb: normal Duodenum (second and third portion): normal Impression: Overall normal EGD Belching symptoms secondary to aerophagia Recommendations:: F/U with PCP Complications:: None Estimated blood obtained (mL): 0 Colonoscopy Component Colonoscopy Component Was a colonoscopy performed during today's procedure?: No
== END 2023-04-15 12:00 | disposition home or self-care (01) ==
PROVIDERS: PCP Family Medicine; Visit Provider Internal Medicine Gastroenterology
PROC: 0DJ08ZZ Inspection of Upper Intestinal Tract, Via Natural or Artificial Opening Endoscopic (ICD-10-PCS; CPT 43235; principal; 2023-04-15 10:30)
DX: F45.8 Other somatoform disorders (principal); K58.9 Irritable bowel syndrome, unspecified; K21.9 Gastro-esophageal reflux disease without esophagitis
CPT/HCPCS: 43235

== ENCOUNTER → 2023-06-07 10:53 | Outpatient (CLI) | payer MEDICARE, OTHER, SELFPAY ==
[2023-06-07 14:38] LABS: Occult Blood,Stool Negative (Negative)
[2023-06-10 20:09] LABS: Calprotectin, Fecal <5 ug/g (0-120)
[2023-06-11 00:06] LABS: Pancreatic Elastase, Fecal 234 (>200)
== END ==
PROVIDERS: PCP Family Medicine; Visit Provider Nurse Practitioner
DX: K21.9 Gastro-esophageal reflux disease without esophagitis (principal); R19.7 Diarrhea, unspecified; Z85.3 Personal history of malignant neoplasm of breast
CPT/HCPCS: 82272; 82656; 83993; 87205; G0328

== ENCOUNTER → 2023-07-12 15:36 | Outpatient (CLI) | payer MEDICARE, OTHER, SELFPAY ==
[2023-07-12 16:08] LABS: Basophils % 0.5 % (0.1-2.0); Eosinophils # 0.2 K/mm3 (0.0-0.4); Eosinophils % 2.8 % (0.1-12.0); Hematocrit 41.4 % (37.0-47.0); Hemoglobin 13.4 g/dL (12.2-16.2); Lymphocytes # 2.5 K/mm3 (0.7-4.5); Lymphocytes % 35.9 % (10-50); Mean Corpuscular HGB Conc 32.4 g/dL (31.8-35.4); Mean Corpuscular Hemoglobin 30.3 pg (27.0-31.2); Mean Corpuscular Volume 93.6 fl (81-99); Monocytes # 0.4 K/mm3 (0.1-1.0); Neutrophils # 3.7 K/mm3 (1.8-7.8); Neutrophils % 54.8 % (37.0-80.0); Platelet Count 266 K/mm3 (142-424); Red Blood Count 4.42 M/mm3 (4.20-5.40); Red Cell Distribution Width 13.9 % (11.5-17.5); White Blood Count 6.8 K/mm3 (4.8-10.8)
[2023-07-12 16:46] LABS: Alanine Aminotransferase 31 U/L (12-78); Albumin Level 4.2 g/dl (3.5-5.0); Alkaline Phosphatase 100 U/L (38-126); Aspartate Amino Transferase 32 U/L (14-36); Bilirubin,Direct 0.1 mg/dl (0.0-0.4); Bilirubin,Indirect 0.2 mg/dL (0.0-0.9); Bilirubin,Total 0.3 mg/dl (0.2-1.3); Bilirubin,Unconjugated 0.2 mg/dL (0.0-1.1); Blood Urea Nitrogen 12 mg/dl (7-17); Calcium 9.3 mg/dl (8.4-10.2); Carbon Dioxide 25 mmol/L (22.0-30.0); Chloride 102 mmol/L (98-107); Cholesterol 170 mg/dl (140-200); Estimated Glomerular Filt Rate 83 ml/min (>60); GFR (African American) 101 ML/MIN (>60); Glucose 90 mg/dl (74-100); HDL Cholesterol 85 mg/dl (40-60); Potassium 4.5 mmoL/L (3.5-5.1); Total Protein,Serum 6.8 g/dl (6.3-8.2); Triglycerides 149 mg/dl (30-150); VLDL Cholesterol 30 mg/dL (0-40)
[2023-07-12 16:57] LABS: Direct LDL Cholesterol 70.34 mg/dL (100-129)
[2023-07-12 17:02] LABS: Free T4 (Free Thyroxine) 0.95 ng/dl (0.78-2.19)
[2023-07-12 17:16] LABS: Thyroid Stimulating Hormone 3.23 uIU/mL (0.465-4.68)
[2023-07-12 17:24] LABS: Anion Gap 11.5 mEq/L (5-15); Sodium 134 mmol/L (136-145)
== END ==
PROVIDERS: PCP Family Medicine; Visit Provider Internal Medicine
DX: E78.2 Mixed hyperlipidemia (principal); I10 Essential (primary) hypertension; I25.10 Atherosclerotic heart disease of native coronary artery without angina pectoris; R00.2 Palpitations; R07.9 Chest pain, unspecified; R53.83 Other fatigue; E78.5 Hyperlipidemia, unspecified
CPT/HCPCS: 36415; 80048; 80061; 80076; 83735; 84439; 84443; 85025

== ENCOUNTER → 2023-07-16 07:44 | Outpatient (CLI) | payer MEDICARE, OTHER, SELFPAY ==
--- NOTE | 2023-07-16 07:44 | CA_ITS ---
APPROVED REPORT EXAM: Comprehensive 2D, Doppler, and color-flow Echocardiogram Severity Of Illness Coordinator: EDILSON Mckenzie, RVS Ht: 5 ft 5 in Wt: 162lbs BSA: 1.81 BP: 162/91 mmHg Indications: CAD, Palpitations, HTN, Fatigue, GERD, Dyspepsia, Atypical CP 2D Dimensions Aortic Root 3.03 cm LA Volume 57.50 mL Left Atrium 3.34 cm LA Volume Index 31.064056 mL/m2 (M/F) 16-34 RVID Base (AP4) 3.27 cm (M/F) 2.5-4.1 EF AP4 59.80 % LVOT 2.05 cm (M/F) 1.5-2.5 GL Strain -21.3 % Ascending Aorta 3.45 cm M-Mode Dimensions RVDd 2.47 cm (0.9-2.6) LVDd 4.29 cm (3.5-5.7) Ao Diam 3.04 cm (2.0-3.7) LVDs 2.72 cm (3.5-5.7) IVSd 0.75 cm (0.6-1.1) PWd 0.94 cm (0.6-1.1) EF (Teich) 66.70% EPSs 0.88 cm FS 36.60% EDV (Teich) 82.60 mL TAPSE 1.91 (<1.7) ESV (Teich) 27.50 mL LV Diastology E Decel Time 286 (160-240 msec) E/A Ratio 0.77 MED E' 5.9 (>= 7 cm/sec) MED A' 10.60 cm/s E'/MED E' Ratio 11.92 (<= 14) LAT E' 7.0 (>= 10 cm/sec) LAT A' 14.00 cm/s E/LAT E' Ratio 10.04 (<= 14) Aortic Valve LVOT Max 110.0 (70-110 cm/s) LENIN Index 1.56 cm2/m2 LVOT VTI 23.87 cm AoV Peak Edinson. 138.0 (50-130 cm/s) AI PHT 393.00 ms AO Mean GR. 3.80 (<5 mmHg) AO VTI 27.9 (18-25 cm) LENIN (VTI) 2.82 (2.5-4.5 cm2) Mitral Valve MV E Max Edinson. 70.0 (40-130 cm/s) MV A Velocity 91.0 (40-130 cm/s) E/A Ratio 0.77 MV Decel. Time 286 (160-240 ms) Tricuspid Valve TR P. Velocity 174.00 cm/s Left Ventricle The left ventricle is normal size. The left ventricular systolic function is normal. The left ventricular ejection fraction is within the normal range. There is normal left ventricular wall thickness. There is normal LV segmental wall motion. The left ventricular diastolic function is normal. LVEF is 55%. Right Ventricle The right ventricle is normal size. The right ventricular systolic function is normal. Atria The left atrium size is normal. The right atrium size is normal. There is no Doppler evidence of interatrial shunt. Aortic Valve The aortic valve is trileaflet. The aortic valve opens well. There is no aortic valvular stenosis. Mild aortic regurgitation. Mitral Valve The mitral valve is normal in structure. No evidence of mitral valve stenosis. Trace mitral regurgitation. Tricuspid Valve The tricuspid valve leaflets are thin and pliable. Mild tricuspid regurgitation. RVSP is normal. Pulmonic Valve The pulmonary valve is normal in structure. Trace pulmonic regurgitation. Great Vessels The aortic root is normal in size. The ascending aorta is borderline dilated, measuring 3.7 cm in diameter. IVC is normal in size and collapses >50% with inspiration. Pericardium There is no pericardial effusion. Other Information Study Quality: Fair Conclusion Normal biventricular systolic function. Mild AI, mild TR. Ascending aorta is borderline dilated, measuring 3.7 cm in diameter. Electronically signed by : Audra Barron MD 07/19/2023 20:56:27
== END ==
PROVIDERS: PCP Family Medicine; Visit Provider Internal Medicine
DX: E78.5 Hyperlipidemia, unspecified (principal); I25.10 Atherosclerotic heart disease of native coronary artery without angina pectoris; R00.2 Palpitations; R07.9 Chest pain, unspecified; R53.83 Other fatigue; Z87.891 Personal history of nicotine dependence; I11.9 Hypertensive heart disease without heart failure
CPT/HCPCS: 93306

== ENCOUNTER 2023-08-31 11:35 | Outpatient (CLI) | payer MEDICARE, OTHER, SELFPAY ==
[2023-08-18 13:54] VITALS: BMI 26.6
--- NOTE | 2023-08-31 11:36 | CT_ITS ---
APPROVED REPORT Arc Welder: CLINICAL INDICATION Chest Pain TECHNIQUE Image Acquisition: A 128 slice MDCT scanner (Syn[employer]ia Systemsa View) was used for data acquisition. A noncontrast coronary calcium scan was performed. A CT attenuation threshold of 130 Hounsfield units (HU) was used for the detection of calcium in contiguous voxels of 1 sq mm in area to be counted as individual lesions. Bolus tracking in the ascending aorta with a threshold of 180 HU was performed. Immediately afterwards, ECG synchronized cardiac CT was then performed from the cardiac base to apex using retrospective gating with ECG tube current modulation. A total of 85 mL of Isovue 370 mg/mL contrast medium was administered at 5 mL/sec followed by a saline flush using a biphasic injection protocol. A tube voltage of 120 KVp was used. The patient received the following medications prior to the cardiac CT. 75 mg of oral metoprolol 15 mg of oral ivabradine 0.8 mg of sublingual nitroglycerin The average heart rate at the time of acquisition was 50 bpm and regular. Image Reconstruction Transaxial images were reconstructed at 0.67 mm slide thickness. Data was reviewed interactively on an advanced workstation capable of 2 and 3-dimensional displays in all conventional reconstruction formats, including multiplanar reformations, maximum intensity projections, curved multiplanar reformations, and volume rendered reconstructions. When applicable, selected routine images describing the relevant coronary anatomy and pathology were saved and sent to PACS. Complications None Technical Quality Overall image quality was good. Coronary artery opacification was adequate. Total DLP (Dose-Length Product) is 1501.8 mGy-cm. The reported value represents the total of one or more individual components during the CT acquisition of this date and at this time, and as such, the same value may appear in more than one CT report depending on the interpreting/reporting physicians. COMPARISON None FINDINGS CT Coronary Calcium Scoring LMA (Left Main Artery) = 0 LAD (Left Anterior Descending) = 56 LCX (Left Coronary Circumflex) = 0 RCA (Right Coronary Artery) = 0 Total Calcium Score = 56 using the AJ-130 method. The observed calcium score of 56 is at 71st percentile for subjects of the same age, sex, and race/ethnicity. The interpretation of the calcium heart score is based on the following continuum*: 0 = no calcified plaque detected (risk of coronary artery disease is very low ??? less than 5%) 1-10 = calcium detected in extremely minimal levels (risk of coronary diseases is still low ??? less than 10%) 11-100 = mild levels of plaque detected with certainty (mild or minimal narrowing of heart arteries is likely) 101-400 = definite,at least moderate levels of plaque detected (relatively high risk of a heart attack within 3-5 years) >401-999 = extensive levels of plaque detected (high risk of heart attack, high levels of vascular disease are present, high likelihood of at least one significant coronary narrowing) *The calcium heart score quantifies the burden of coronary calcification/plaque in the coronary arteries. The calcium heart score is not able to evaluate the presence or burden of non-calcified (i.e. soft) plaque. There is identifiable calcification in the descending thoracic aorta, but not the aortic valve, mitral annulus or mitral valve, pericardium, or myocardium. Coronary CT Angiography The coronary arterial system is right dominant. Quantitative Stenosis Grading: Left Main (LM): The left main originates normally from the left sinus of Valsalva. The LM bifurcates into the left anterior descending artery and left circumflex artery. The LM is patent with no evidence of atherosclerosis. Left Anterior Descending (LAD) and Diagonal Branches: The LAD gives off 3 diagonal branches. There is a focus of mixed plaque in the proximal LAD, but without any significant luminal stenosis. The remainder of the LAD segments and its branches are patent with no evidence of atherosclerosis. There is no evidence of LAD bridge. Ramus-intermedius (RI): The RI is patent. Left Circumflex (LCX) and Obtuse Marginals (OM): The LCX gives off 3 Obtuse Marginal (OM) branches. The LCX and its branches are patent with no evidence of atherosclerosis. Right Coronary Artery (RCA): The RCA originates normally from the right sinus of Valsalva. The RCA gives off a posterior descending artery (PDA) and posterolateral (PL) branches. There is minimal anon-calcified plaque in the proximal RCA of < 30% luminal stenosis. Non-Coronary Cardiac Findings: Analysis of the left ventricular (LV) structure and function was performed after 3-D reconstruction of the LV from axial images, with user-corrected automatic contouring for assessment of LV volumes and user-defined reconstruction from oblique planes for measurement of 3-D cardiac structure and function. LVEDV: 153 mL LVESV: 63 mL SV: 90 mL LVEF: 59 % -The left ventricle is normal in size with normal left ventricular systolic function. -There is no left atrial appendage filling defect. Two right pulmonary veins and two left pulmonary veins drain normally into the left atrium. -No pericardial thickening or calcification. -Central and branch pulmonary arteries in the [id number] are unremarkable. -Thoracic aorta within the visualized thoracic aortic-branches in the [id number] is unremarkable. Extracardiac Structures No significant extra-cardiac findings. IMPRESSION -Presence of coronary calcification with an Agatston score = 56 using the AJ-130 method. -The observed calcium score of 56 is at 71st percentile for subjects of the same age, sex, and race/ethnicity. -Minimal luminal stenosis of the proximal RCA and LAD, but no evidence of significant flow-limiting atherosclerosis of the coronary arteries. -CAD-RADS 1. Management recommendations per ACC/AHA guidelines*, as clinically appropriate. *Recommendations: CAD RADS 0: Reassurance. Consider non-atherosclerotic causes of chest pain. CAD RADS 1: Consider non-atherosclerotic causes of chest pain. Consider preventive therapy and risk factor modification. CAD RADS 2: Consider non-atherosclerotic causes of chest pain. Consider preventive therapy and risk factor modification, particularly for patients with nonobstructive plaque in multiple segments. CAD RADS 3: Consider further functional testing. Consider symptom-guided anti-ischemic and preventive pharmacotherapy as well as risk factor modification per published guideline statements. CAD RADS 4A: Consider further functional testing or invasive coronary angiography with revascularization per published guideline statements. Consider symptom-guided anti-ischemic and preventive pharmacotherapy as well as risk factor modification per published guideline statements. CAD RADS 4B: Invasive coronary angiography recommended with revascularization per published guideline statements. Consider symptom-guided anti-ischemic and preventive pharmacotherapy as well as risk factor modification per published guideline statements. CAD RADS 5: Consider invasive angiography and/or viability assessment with revascularization per published guideline statements. Consider symptom-guided anti-ischemic and preventive pharmacotherapy as well as risk factor modification per published guideline statements. CRITICAL RESULT None COMMUNICATION Per this written report The coronary and cardiac findings of this CCTA were reviewed, reported, and signed by Rafael Barron MD (Artist'S Representative) Conclusion Electronically signed by : Audra Barron MD 09/01/2023 13:02:10
[2023-08-31] MEDS: IVABRADINE HCL 7.5MG TABLET *IVABRADINE+METOPROLOL REGIMINE 15 MG PO (12:36)
[2023-08-31] MEDS: METOPROLOL TARTRATE 50MG TABLET *IVABRADINE+METOPROLOL REGIMINE 75 MG PO (12:37)
[2023-08-31 12:40] VITALS: BP 153/95; PULSE 71; RESP 18; TEMP 36.3; O2SAT 99
[2023-08-31 12:44] LABS: Chloride 93 mmol/L (98-107); Sodium 128 mmol/L (136-145)
[2023-08-31 12:47] LABS: Blood Urea Nitrogen 14 mg/dl (7-17); Creatinine Clearance Estimated 63 mL/min (50-200); Estimated Glomerular Filt Rate 83 ml/min (>60); GFR (African American) 101 ML/MIN (>60)
[2023-08-31 12:48] LABS: Carbon Dioxide 28 mmol/L (22.0-30.0); Glucose 96 mg/dl (74-100)
--- NOTE | 2023-08-31 13:09 | PC.NURSE ---
Spoke with Dr. Barron, informing of sodium level 128, no symptoms noted. MD wants pt to be seen in office and recheck level tomorrow. Appt made, pt aware.
[2023-08-31 13:52] VITALS: BP 170/80; PULSE 56; RESP 16; O2SAT 97
[2023-08-31 13:56] VITALS: BP 170/91; PULSE 53; RESP 16; O2SAT 98
[2023-08-31 14:04] VITALS: BP 123/56; PULSE 55; RESP 16; O2SAT 94
[2023-08-31 14:10] VITALS: BP 136/72; PULSE 52; RESP 16; O2SAT 96
[2023-08-31] MEDS: 0.9 % SODIUM CHLORIDE 50 ML VIAL IV (14:21)
[2023-08-31] MEDS: IOPAMIDOL-370 (76%);100ML BOTTLE 85 ML IV (14:22)
[2023-08-31] MEDS: SODIUM CHLORIDE 0.9% 10ML SYR (RAD ONLY) 10 ML IV (14:22)
[2023-08-31 14:30] VITALS: BP 141/70; PULSE 59; RESP 16; TEMP 36.6; O2SAT 98
== END 2023-08-31 14:40 | disposition home or self-care (01) ==
PROVIDERS: PCP Family Medicine; Visit Provider Internal Medicine
DX: E78.5 Hyperlipidemia, unspecified (principal); I10 Essential (primary) hypertension; I25.10 Atherosclerotic heart disease of native coronary artery without angina pectoris; R00.2 Palpitations; R07.9 Chest pain, unspecified; R53.83 Other fatigue
CPT/HCPCS: 75571; 75574; 80048; Q9967

== ENCOUNTER 2023-09-01 15:14 | Outpatient (CLI) | payer MEDICARE, OTHER, SELFPAY ==
[2023-09-01 15:59] LABS: Chloride 99 mmol/L (98-107); Potassium 4.7 mmoL/L (3.5-5.1); Sodium 135 mmol/L (136-145)
[2023-09-01 16:02] LABS: Anion Gap 11.7 mEq/L (5-15); Blood Urea Nitrogen 16 mg/dl (7-17); Calcium 9.5 mg/dl (8.4-10.2); Carbon Dioxide 29 mmol/L (22.0-30.0); Estimated Glomerular Filt Rate 62 ml/min (>60); GFR (African American) 76 ML/MIN (>60); Glucose 94 mg/dl (74-100)
== END 2023-09-01 23:59 ==
LOC: LAB 15:15
PROVIDERS: PCP Family Medicine; Visit Provider Internal Medicine
DX: E87.1 Hypo-osmolality and hyponatremia (principal); I10 Essential (primary) hypertension; I25.10 Atherosclerotic heart disease of native coronary artery without angina pectoris
CPT/HCPCS: 36415; 80048

== ENCOUNTER 2023-09-06 11:26 | Outpatient (CLI) | payer MEDICARE, OTHER, SELFPAY ==
[2023-09-06 12:16] LABS: Anion Gap 11.6 mEq/L (5-15); Blood Urea Nitrogen 12 mg/dl (7-17); Calcium 9.6 mg/dl (8.4-10.2); Carbon Dioxide 28 mmol/L (22.0-30.0); Chloride 100 mmol/L (98-107); Estimated Glomerular Filt Rate 72 ml/min (>60); GFR (African American) 87 ML/MIN (>60); Glucose 91 mg/dl (74-100); Potassium 4.6 mmoL/L (3.5-5.1); Sodium 135 mmol/L (136-145)
== END 2023-09-06 23:59 ==
LOC: LAB 11:26
PROVIDERS: PCP Family Medicine; Visit Provider Internal Medicine
DX: E87.1 Hypo-osmolality and hyponatremia (principal); I10 Essential (primary) hypertension; I25.10 Atherosclerotic heart disease of native coronary artery without angina pectoris
CPT/HCPCS: 36415; 80048

== ENCOUNTER 2023-12-30 12:51 | Outpatient (CLI) | payer MEDICARE, OTHER, SELFPAY ==
--- NOTE | 2023-12-30 12:54 | CT_ITS ---
FINAL REPORT CLINICAL HISTORY: H/O TOBACCO USE PREVIOUS SMOKER , 1/2 PPD X 37 YEARS FINDINGS: CTDI vol (mGy): 2.90 DLP: 96.[address] images of the chest were obtained using the low-dose protocol for screening.Surgical clips are seen in the right axilla. There are calcified left hilar lymph nodes. There is no evidence of mediastinal or hilar mass or adenopathy. No axillary mass or adenopathy is identified. On the lung window images, a 2 mm nodule seen in the posterior left upper lobe, best seen on image 35 of series 4. Lungs are otherwise clear. IMPRESSION: 2 mm nodule in the posterior left upper lobe. Lung RADS category 2. Recommend 12 month followup low-dose CT for further evaluation. Reviewed, Interpreted and Dictated by Niko Flores MD Transcribed by Xiomara Gleason Authenticated and . [facility]
== END 2023-12-30 23:59 | disposition home or self-care (01) ==
LOC: RAD 12:51
PROVIDERS: PCP Physician Assistant; Visit Provider Physician Assistant
DX: Z87.891 Personal history of nicotine dependence (principal); Z12.2 Encounter for screening for malignant neoplasm of respiratory organs
CPT/HCPCS: 71271

== ENCOUNTER 2024-06-22 08:39 | Outpatient (CLI) | payer MEDICARE, OTHER, SELFPAY ==
[2024-06-22 09:10] LABS: Basophils # 0.1 K/mm3 (0-0.2); Basophils % 1.1 % (0.1-2.0); Eosinophils # 0.2 K/mm3 (0.0-0.4); Eosinophils % 3.4 % (0.1-12.0); Hematocrit 42.4 % (37.0-47.0); Hemoglobin 13.8 g/dL (12.2-16.2); Lymphocytes # 2.1 K/mm3 (0.7-4.5); Lymphocytes % 34.5 % (10-50); Mean Corpuscular HGB Conc 32.5 g/dL (31.8-35.4); Mean Corpuscular Volume 92.2 fl (81-99); Mean Platelet Volume 8.1 fl (7.4-10.4); Monocytes # 0.5 K/mm3 (0.1-1.0); Monocytes % 8.2 % (1.7-9.3); Neutrophils # 3.2 K/mm3 (1.8-7.8); Neutrophils % 52.9 % (37.0-80.0); Platelet Count 262 K/mm3 (142-424); Red Cell Distribution Width 14.1 % (11.5-17.5)
[2024-06-22 09:25] LABS: Alanine Aminotransferase 30 U/L (12-78); Albumin Level 4.1 g/dl (3.5-5.0); Alkaline Phosphatase 133 U/L (38-126); Anion Gap 11.3 mEq/L (5-15); Aspartate Amino Transferase 25 U/L (14-36); Bilirubin,Direct 0.2 mg/dl (0.0-0.4); Bilirubin,Indirect 0.4 mg/dL (0.0-0.9); Bilirubin,Total 0.6 mg/dl (0.2-1.3); Bilirubin,Unconjugated 0.4 mg/dL (0.0-1.1); Blood Urea Nitrogen 14 mg/dl (7-17); Calcium 9.4 mg/dl (8.4-10.2); Carbon Dioxide 30 mmol/L (22.0-30.0); Chloride 103 mmol/L (98-107); Chol/HDL Ratio 2.4 (1-3.5); Cholesterol 187 mg/dl (140-200); Estimated Glomerular Filt Rate 83 ml/min (>60); GFR (African American) 101 ML/MIN (>60); Glucose 90 mg/dl (74-100); HDL Cholesterol 79 mg/dl (40-60); Potassium 4.3 mmoL/L (3.5-5.1); Sodium 140 mmol/L (136-145); Total Protein,Serum 6.4 g/dl (6.3-8.2); Triglycerides 146 mg/dl (30-150); VLDL Cholesterol 29 mg/dL (0-40)
[2024-06-22 09:38] LABS: Direct LDL Cholesterol 82.37 mg/dL (100-129)
[2024-06-22 09:43] LABS: Free T4 (Free Thyroxine) 0.98 ng/dl (0.78-2.19)
[2024-06-22 09:56] LABS: Thyroid Stimulating Hormone 4.29 uIU/mL (0.465-4.68)
[2024-06-26 03:36] LABS: Pancreatic Elastase, Fecal 319 (>200)
== END 2024-06-22 23:59 | disposition home or self-care (01) ==
LOC: RT 08:40
PROVIDERS: Nurse Practitioner Family; PCP Family Medicine; Visit Provider Internal Medicine
DX: R00.2 Palpitations (principal); R07.89 Other chest pain; R06.09 Other forms of dyspnea; I11.9 Hypertensive heart disease without heart failure; I25.10 Atherosclerotic heart disease of native coronary artery without angina pectoris; R53.83 Other fatigue; R40.0 Somnolence; R01.1 Cardiac murmur, unspecified; E78.2 Mixed hyperlipidemia; I49.8 Other specified cardiac arrhythmias; R42 Dizziness and giddiness; E78.5 Hyperlipidemia, unspecified; R14.0 Abdominal distension (gaseous)
CPT/HCPCS: 36415; 80048; 80061; 80076; 82656; 84439; 84443; 85025; 93270

== ENCOUNTER 2024-06-28 14:35 | Outpatient (CLI) | payer MEDICARE, OTHER, SELFPAY ==
--- NOTE | 2024-06-28 14:39 | CA_ITS ---
APPROVED REPORT EXAM: Comprehensive 2D, Doppler, and color-flow Echocardiogram Innersole Maker: Clemencia Tolliver CRT Ht: 5 ft 5 in Wt: 165lbs BSA: 1.82 BP: 173/81 mmHg Indications: Chest Pain, Shortness of Breath, Palpitations, CAD, Hyperlipidemia, Hypertension/HDD, AI 2D Dimensions LA Volume 40.00 mL LA Volume Index 21.40 mL/m2 (M/F) 16-34 M-Mode Dimensions RVDd 2.26 cm (0.9-2.6) LA Diam 3.46 cm (1.9-4.0) LVDd 4.56 cm (3.5-5.7) LVDs 2.55 cm (3.5-5.7) IVSd 1.11 cm (0.6-1.1) PWd 1.15 cm (0.6-1.1) EF (Teich) 75.50% FS 44.10% EDV (Teich) 95.40 mL TAPSE 2.82 (<1.7) ESV (Teich) 23.40 mL LV Diastology E Decel Time 217 (160-240 msec) E/A Ratio 0.67 MED A' 15.40 cm/s LAT A' 18.20 cm/s Aortic Valve AI PHT 417.00 ms AO Peak GR. 7.30 mmHg Mitral Valve MV E Max Edinson. 74.0 (40-130 cm/s) MV A Velocity 110.0 (40-130 cm/s) E/A Ratio 0.67 MV PHT 63.0 ms Pulmonary Valve PV Peak Velocity 109.0 (50-150 cm/s) Tricuspid Valve TR P. Velocity 200.00 cm/s RAP Estimate 10.00 mmHg RVSP 25.90 mmHg Left Ventricle The left ventricle is normal size. There is increased LV wall thickness. The left ventricular systolic function is normal. The left ventricular ejection fraction is within the normal range. There is normal LV segmental wall motion. Transmitral Doppler flow pattern suggests impaired LV relaxation. LVEF is 55%. Right Ventricle The right ventricle is normal size. The right ventricular systolic function is normal. Atria The left atrium size is normal. The right atrium size is normal. There is no Doppler evidence of interatrial shunt. Aortic Valve The aortic valve is mildly thickened. There is no aortic valvular stenosis. Mild to moderate aortic regurgitation. Mitral Valve The mitral valve is normal in structure. No evidence of mitral valve stenosis. Trace mitral regurgitation. Tricuspid Valve Tricuspid valve is grossly normal in structure and function. Trace tricuspid regurgitation. There is insufficient TR jet to estimate RVSP. Pulmonic Valve The pulmonary valve is normal in structure. Mild pulmonic regurgitation. Great Vessels The aortic root is normal in size. The ascending aorta is borderline dilated, measuring 3.7 cm in diameter. IVC is normal in size and collapses >50% with inspiration. Pericardium There is no pericardial effusion. Other Information Study Quality: Fair Conclusion Normal biventricular size and systolic function. Mild to moderate AI. Mild PI. Borderline dilated ascending aorta (3.7 cm). When directly compared to the prior study from 07/2023, the AI severity is overall unchanged or slightly worse. The size of the ascending aorta is unchanged. Electronically signed by : Audra Barron MD 07/09/2024 22:31:11
== END 2024-06-28 23:59 | disposition home or self-care (01) ==
LOC: RT 14:36
PROVIDERS: PCP Family Medicine; Visit Provider Internal Medicine
DX: I35.1 Nonrheumatic aortic (valve) insufficiency (principal); I49.8 Other specified cardiac arrhythmias; R07.89 Other chest pain; R06.09 Other forms of dyspnea; I25.10 Atherosclerotic heart disease of native coronary artery without angina pectoris; R00.2 Palpitations; R42 Dizziness and giddiness
CPT/HCPCS: 93306

== ENCOUNTER 2024-10-25 08:38 | Outpatient (CLI) | payer MEDICARE, OTHER, SELFPAY ==
--- NOTE | 2024-10-25 08:43 | US_ITS ---
FINAL REPORT TECHNIQUE: Multiple transverse and longitudinal images CLINICAL HISTORY: RUQ PAIN COMPARISON: None FINDINGS: The gallbladder shows no wall thickening, distention or stone disease. No biliary ductal dilatation is appreciated. No fluid collections are seen. Limited portions of the liver demonstrate fatty infiltration of the liver. Limited portions of the right kidney are unremarkable. IMPRESSION: No acute gallbladder disease or gallstones identified. Fatty infiltration of the liver. Reviewed, Interpreted and Dictated by Ector Monteiro MD Transcribed by Maddie Carvajal Authenticated and [facility]
== END 2024-10-25 23:59 | disposition home or self-care (01) ==
LOC: RAD 08:39
PROVIDERS: PCP Family Medicine; Visit Provider Physician Assistant
DX: R10.11 Right upper quadrant pain (principal)
CPT/HCPCS: 76705

== ENCOUNTER 2025-01-03 09:59 | Outpatient (CLI) | payer MEDICARE, OTHER, SELFPAY ==
--- NOTE | 2025-01-03 10:01 | CT_ITS ---
FINAL REPORT TECHNIQUE: Thin section axial images were obtained from the lung apices to the upper abdomen by computed tomography. Reformatted images were obtained and reviewed. This study was performed with techniques to keep radiation doses al low as reasonably achievable (ALARA). Individualized dose reduction techniques using automated exposure control or adjustment of mA and/or kV according to the patient's size were employed. CLINICAL HISTORY: SCREENING FORMER SMOKER QUIT 16 YEARS AGO 1/2PPD X37 YEARS COMPARISON: 12/30/2023 FINDINGS: CHEST CT LOW DOSE 69-year-old female, former smoker for 16 years, 85-pjij-nzth history. CTDI vol (mGy): 2.90 DLP (mGy-cm): 90.38 There is no axillary adenopathy. There is no mediastinal or hilar mass or adenopathy. The heart is normal in size. There is no pericardial or pleural effusion. There is mild emphysema and mild pulmonary scarring. Lung window images demonstrate a stable 2 mm posterior left upper lobe nodule, best seen on image #27 of series 4. No new nodules or masses are identified. Limited images of the upper abdomen are unremarkable. IMPRESSION: Lung-RADS category 2. Recommend 12 month follow up low dose chest CT. Reviewed, Interpreted and Dictated by Niko Flores MD Transcribed by Maddie Carvajal Authenticated and [facility]
== END 2025-01-03 23:59 | disposition home or self-care (01) ==
LOC: RAD 10:00
PROVIDERS: PCP Family Medicine; Visit Provider Physician Assistant
DX: Z12.2 Encounter for screening for malignant neoplasm of respiratory organs (principal); J43.9 Emphysema, unspecified; R91.1 Solitary pulmonary nodule; Z87.891 Personal history of nicotine dependence
CPT/HCPCS: 71271

== ENCOUNTER 2025-03-26 08:59 | Day surgery (SDC) | payer MEDICARE, OTHER, SELFPAY ==
[2025-03-23 14:14] VITALS: BMI 27.4
--- NOTE | 2025-03-26 05:23 | EXP.HP ---
History of Present Illness *Admission Date: 03/26/25 *History of present illness: Mrs. Sinclair is a 69-year-old female who is here for follow-up screening/surveillance colonoscopy secondary to a personal history of adenomatous colon polyps. This is the patient's 4th or 5th colonoscopy and she has had polyps removed each time. Her colonoscopy 10 years ago revealed a single polyp. Her last colonoscopy with fl in March 2020 revealed 2 diminutive polyps (tubular adenomas x 1/small serrated adenoma x 1) which were removed. Her mother had uterine cancer at the age of 84. She reports no family history of colon cancer. The examination is deemed medically necessary for screening/surveillance colonoscopy. The patient has been seen, interviewed and examined prior to the procedure by both myself and the anesthesia provider. [facility] Disclaimer: The information contained in this section may have been updated after the patient was seen, as this information can be updated by other users. Medical History Hyponatremia Glaucoma History of cataract Generalized anxiety disorder History of breast cancer Fluttering heart Palpitations Fatigue Dizziness Dyspnea Chest pain Left carotid bruit Acid reflux Surgical History History of lumpectomy of right breast History of colonoscopy Family History Father Coronary artery disease Stroke Mother Cancer Sister Cancer, Onset Age: 65 breast Social History (Updated 03/26/25 @ 10:20 by Araceli Bejarano RN) Smoking Status: Former smoker second hand exposure: No alcohol intake: current alcohol intake frequency: a few times a week substance use type: former substance user and marijuana current occupational status: retired Travel in the last 8 weeks?: Inside the [facility] ([place]) household members: none housing: house current occupational exposures/hazards: No caffeine: Yes Have you lived/traveled outside US in past 30 days?: No Contact w/someone who lives/traveled outside US past 30 days?: No Exposure to someone with infectious disease in past 14 days?: No Do you have a fever (greater than 100.4 F or 38 C)?: No Have you tested positive for COVID-19?: No Exposed to someone with COVID-19 in past 14 days?: No Do you have a sore throat?: No Do you have a cough?: No Do you have any weakness?: No Are you experiencing any nausea/vomitting?: Yes Do you have any diarrhea?: No Are you experiencing any unusual bleeding?: No Do you have any muscle aches/pain?: No Do you have any abdominal pain?: No Are you experiencing loss of taste or smell?: No Other Medical History Have you received the Flu Vaccine for this season: No Have you received the Pneumonia Vaccine: Yes Review of Systems Review of Systems Review of systems (narrative): Negative *Cardiovascular Comments: Negative *Gastrointestinal Comments: Negative *Genitourinary Comments: Negative *Musculoskeletal Comments: Negative *Neurologic Comments: Negative Meds Home Medications and Allergies Home Medications ?Medication ?Instructions ?Recorded ?Confirmed ?Type mgiupaso-tsrahxm-xktu-lutein tablet 1 mcg PO DAILY Supplement 10/27/18 03/26/25 History alprazolam 0.25 mg tablet (Xanax) 0.25 mg PO HS PRN Anxiety 06/19/24 03/26/25 History losartan 50 mg tablet 50 mg PO DAILY #90 tabs 06/19/24 03/26/25 Rx montelukast 10 mg tablet 10 mg PO DAILY 06/19/24 03/26/25 History albuterol sulfate 90 mcg/actuation 1 puff inhalation NEEDED PRN SOA 10/25/24 03/26/25 History aerosol inhaler sodium,potassium,mag sulfates 17.5 See Rx Instructions PO .COMPLEX 03/12/25 03/26/25 Rx gram-3.13 gram-1.6 gram oral soln #354 mL (Suprep Bowel Prep Kit) biotin 1,250 mcg-collagen 50 1 tab PO DAILY 03/23/25 03/26/25 History mg-vit C 67.5 mg-vit E-herbal chew tablet cholecalciferol (vitamin D3) 10 10 mcg PO DAILY 03/23/25 03/26/25 History mcg (400 unit) capsule (Vitamin D3) lactobacillus combination no.4 3 3,000 mmu cells PO DAILY 03/23/25 03/26/25 History billion cell capsule (Probiotic) zinc 10 mg tablet 10 mg PO DAILY 03/23/25 03/26/25 History New Prescriptions to Start Prescriptions: Allergies Allergy/AdvReac Type Severity Reaction Status Date / Time hydrochlorothiazide AdvReac Severe Other Verified 03/26/25 10:22 Exam Data for Last 24 hours I & O for Last 24 hours: Intake & Output 03/23/25 03/24/25 03/25/25 03/26/25 23:59 23:59 23:59 23:59 Weight 165 lb *Routine HEENT Exam Head: Present normocephalic Eye: Present EOMI and PERRL ENT: Present mucous membranes moist *Routine Neck Exam Neck: Present supple *Routine Respiratory Exam Respiratory: Present CTA bilaterally *Routine Cardiovascular Exam Cardiovascular: Present RRR *Routine Abdominal Exam Abdominal: Present soft and normoactive bowel sounds; Absent tenderness *Routine Rectal Exam Rectal:: deferred *Routine Genitalia Exam Genitalia:: deferred *Routine Extremities Exam Extremities: Absent cyanosis, clubbing or edema *Routine Skin Exam Skin: Present warm; Absent rash *Routine Neurological Exam Neurological: Present alert and oriented X3 Assessment and Plan *Assessment and plan (1) Personal history of adenomatous and serrated colon polyps: Status: Acute Category: Medical Code(s): Z86.0101 - Personal history of adenomatous and serrated colon polyps Plan A/P: 1. Personal history of adenomatous colon polyps is the preprocedural diagnosis. The patient will be anesthetized/sedated using MAC sedation. The patient has been seen and examined. Cardiac and lung assessment prior to the examination is stable. Proceed with planned screening/surveillance colonoscopy.
[2025-03-26 10:10] VITALS: BP 152/77; PULSE 65; RESP 18; TEMP 36.4; O2SAT 100; BMI 27.4
--- NOTE | 2025-03-26 10:14 | ECG_ITS ---
APPROVED REPORT Exam: Resting ECG HR:59 bpm ECG Measurements Heart Rate 59 AXES TX 206 P 51 QRSd 130 QRS -35 QT 429 T 12 QTc 429 Conclusion SINUS BRADYCARDIA LEFT AXIS DEVIATION [QRS AXIS < -30] MODERATE INTRAVENTRICULAR CONDUCTION DELAY [110+ ms QRS DURATION] VOLTAGE CRITERIA FOR LVH [MEETS CRITERIA IN ONE OF: R(aVL), S(V1), R(V5), R(V5/V6)+S(V1)] ABNORMAL ECG UNCONFIRMED REPORT Electronically signed by : Galen Mir MD 03/27/2025 08:22:41
--- NOTE | 2025-03-26 10:27 | P.PCN_ITS ---
[facility] Procedure Note Date: 03/26/25 Time: 11:30 Procedure Note:: Colonoscopy Procedure Report: Colonoscopy with cold snare polypectomy Endoscopist: Keith Rothman II, MD Referring physician: Humza Echols MD Date of Procedure: March 26, 2025 Equipment: Olympus [id number] adult colonoscope Sedation: MAC sedation Indication: Mrs. Sinclair is a 69-year-old female who is here for follow-up screening/surveillance colonoscopy secondary to a personal history of adenomatous colon polyps. This is the patient's 4th or 5th colonoscopy and she has had polyps removed each time. Her colonoscopy 10 years ago revealed a single polyp. Her last colonoscopy with [facility] in March 2020 revealed 2 diminutive polyps (tubular adenomas x 1/small serrated adenoma x 1) which were removed. Her mother had uterine cancer at the age of 84. She reports no family history of colon cancer. The patient had has struggled with IBS and GERD. She has had some change in her bowel habits that started over a year ago and she reports smaller and more frequent bowel movements with incomplete bowel evacuation and excessive wiping. She has a lot of bloating and gassiness. She has had chronic GERD for years. She did have an EGD with Shane Telles MD in April 2023 and this was reportedly entirely normal. Procedure: Prior to the procedure, a history and physical exam was performed, and patient's medications and allergies were reviewed. The risks, benefits and alternatives of the sedation and procedure were discussed with the patient. All questions were answered and informed consent was obtained. The patient was brought to the procedure room. Patient identification and proposed procedure were verified by the physician and the nurse. The patient was placed in a left lateral decubitus position and the scope was passed under direct vision. Throughout the procedure, the patient's blood pressure, pulse, and oxygen saturations were monitored continuously. The colonoscopy was accomplished without difficulty. The patient tolerated the procedure well. Findings: On digital rectal examination there was normal rectal tone. There were no external hemorrhoids. The colonoscope was introduced through the anal canal to the rectum and advanced to the cecum. The ileocecal valve and appendiceal or ifice were identified. The scope was advanced a short distance into the ileum which appeared grossly normal. The scope was then withdrawn into the colon. There was a single polyp in the cecum (5 mm) with mucus cap (probable small serrated adenoma) which was removed via cold snare polypectomy. The remaining cecum, ascending and transverse colon and mucosa were grossly normal. There were scattered diverticuli throughout the descending and sigmoid colon (LEFT colon). The rectum itself was normal. Upon retroflexion within the rectum there were grade 2 internal hemorrhoids. The preparation was excellent throughout with [place] Preparation Score of 9. The cecal time was 12 minutes. Impression: 1. Diminutive 5 mm cecal polyp 2. Extensive left-sided diverticulosis 3. Grade 2 internal hemorrhoids Plan: I will follow-up the polyp histology and recommend repeat surveillance colonoscopy again in 5 years. I would recommend bulking psyllium fiber (Konsyl) daily and dietary measures. We will discuss additional treatment options.
[2025-03-26] MEDS: LACTATED RINGERS 1000ML 1,000 ML 50 ML IV (10:29)
--- NOTE | 2025-03-26 10:51 | P.PNANES_ITS ---
[facility] Disclaimer: The information contained in this section may have been updated after the patient was seen, as this information can be updated by other users. Medical History Hyponatremia Glaucoma History of cataract Generalized anxiety disorder History of breast cancer Fluttering heart Palpitations Fatigue Dizziness Dyspnea Chest pain Left carotid bruit Acid reflux Surgical History History of lumpectomy of right breast History of colonoscopy Family History Father Coronary artery disease Stroke Mother Cancer Sister Cancer, Onset Age: 65 breast Social History (Updated 03/26/25 @ 10:20 by Araceli Bejarano RN) Smoking Status: Former smoker second hand exposure: No alcohol intake: current alcohol intake frequency: a few times a week substance use type: former substance user and marijuana current occupational status: retired Travel in the last 8 weeks?: Inside the [facility] ([place]) household members: none housing: house current occupational exposures/hazards: No caffeine: Yes Have you lived/traveled outside US in past 30 days?: No Contact w/someone who lives/traveled outside US past 30 days?: No Exposure to someone with infectious disease in past 14 days?: No Do you have a fever (greater than 100.4 F or 38 C)?: No Have you tested positive for COVID-19?: No Exposed to someone with COVID-19 in past 14 days?: No Do you have a sore throat?: No Do you have a cough?: No Do you have any weakness?: No Are you experiencing any nausea/vomitting?: Yes Do you have any diarrhea?: No Are you experiencing any unusual bleeding?: No Do you have any muscle aches/pain?: No Do you have any abdominal pain?: No Are you experiencing loss of taste or smell?: No [facility] Anesthesia Checklist Patient Identification Patient Identification: Arm Band Structural Data Admitted From: Home Planned Operative Procedure/s: Colonoscopy Consent for Planned Operative Procedure(s) Verified: Yes Verified Documents: Surgical Consent and History and Physical NPO Status Verified Time NPO: 00:00 Additional verifications Anesthesia Reactions: No Airway Assessment Mallampati Score:: Class II C-Spine Mobility Assessed: Yes TMJ Mobility Assessed: Yes Dentition: Good Dentition Neurological Assessment Level of Consciousness: Awake, Alert and Appropriate Anesthesia Plan Anesthesia Risk discussed: Yes Anesthesia Plan: Verified ASA Class: II Anesthesia Type: MAC Preoperative Comments Pre-Operative Comments: Pt had vomiting and a fall off of commode this am. Small bruise noted to right eye area. Pt very adamant about proceeding with colonoscopy today. Risks explained of proceeding and pt verbalized understanding.
[2025-03-26 11:31] VITALS: BP 141/63; PULSE 79; RESP 18; TEMP 36.4; O2SAT 92
[2025-03-26 11:41] VITALS: BP 95/46; PULSE 65; RESP 18; O2SAT 99
[2025-03-26 11:51] VITALS: BP 136/70; PULSE 67; RESP 18; O2SAT 100
[2025-03-26 12:01] VITALS: BP 139/71; PULSE 64; RESP 18; TEMP 36.4; O2SAT 99
== END 2025-03-26 12:18 | disposition home or self-care (01) ==
PROVIDERS: PCP Family Medicine; Visit Provider Internal Medicine Gastroenterology
PROC: 0DJD8ZZ Inspection of Lower Intestinal Tract, Via Natural or Artificial Opening Endoscopic (ICD-10-PCS; CPT 45378; principal; 2025-03-26 10:30)
DX: Z12.11 Encounter for screening for malignant neoplasm of colon (principal); Z86.0101 Personal history of adenomatous and serrated colon polyps; K63.5 Polyp of colon; K57.30 Diverticulosis of large intestine without perforation or abscess without bleeding; K64.1 Second degree hemorrhoids; K21.9 Gastro-esophageal reflux disease without esophagitis; Z87.891 Personal history of nicotine dependence; Z88.8 Allergy status to other drugs, medicaments and biological substances; Z79.899 Other long term (current) drug therapy
CPT/HCPCS: 45385; 93005; J2003; J2704; J7120

== ENCOUNTER 2025-06-06 09:38 | Day surgery (SDC) | payer MEDICARE, OTHER, SELFPAY ==
--- NOTE | 2025-05-31 16:18 | EXP.HP ---
History of Present Illness *Admission Date: 06/06/25 *History of present illness: Mrs. Sinclair is a 69-year-old female who is here for diagnostic EGD. She has had persistent heartburn. She has a lot of bloating and gassiness. She has had chronic GERD for years. She did have an EGD with Shane Telles MD in April 2023 and this was reportedly entirely normal. The examination is deemed medically necessary for diagnostic EGD. The patient has been seen, interviewed and examined prior to the procedure by both myself and the anesthesia provider. [facility] Disclaimer: The information contained in this section may have been updated after the patient was seen, as this information can be updated by other users. Medical History Hyponatremia Glaucoma History of cataract Generalized anxiety disorder History of breast cancer Fluttering heart Palpitations Fatigue Dizziness Dyspnea Chest pain Left carotid bruit Acid reflux Surgical History History of lumpectomy of right breast History of colonoscopy Family History Father Coronary artery disease Stroke Mother Cancer Sister Cancer, Onset Age: 65 breast Social History (Updated 06/06/25 @ 10:09 by Marcela Colon RN) Smoking Status: Former smoker second hand exposure: No alcohol intake: current alcohol intake frequency: a few times a week substance use type: former substance user and marijuana current occupational status: retired Travel in the last 8 weeks?: None ([place]) household members: none housing: house current occupational exposures/hazards: No caffeine: Yes Have you lived/traveled outside US in past 30 days?: No Contact w/someone who lives/traveled outside US past 30 days?: No Exposure to someone with infectious disease in past 14 days?: No Do you have a fever (greater than 100.4 F or 38 C)?: No Have you tested positive for COVID-19?: No Exposed to someone with COVID-19 in past 14 days?: No Do you have a sore throat?: No Do you have a cough?: No Do you have any weakness?: No Are you experiencing any nausea/vomitting?: No Do you have any diarrhea?: No Are you experiencing any unusual bleeding?: No Do you have any muscle aches/pain?: No Do you have any abdominal pain?: No Are you experiencing loss of taste or smell?: No Other Medical History Have you received the Flu Vaccine for this season: No Have you received the Pneumonia Vaccine: Yes Review of Systems Review of Systems Review of systems (narrative): Negative *Cardiovascular Comments: Negative *Gastrointestinal Comments: Negative *Genitourinary Comments: Negative *Musculoskeletal Comments: Negative *Neurologic Comments: Negative Meds Home Medications and Allergies Home Medications ?Medication ?Instructions ?Recorded ?Confirmed ?Type csqlxyla-bdfnsxf-jygt-lutein tablet 1 mcg PO DAILY Supplement 10/27/18 06/06/25 History alprazolam 0.25 mg tablet (Xanax) 0.25 mg PO HS PRN Anxiety 06/19/24 06/06/25 History losartan 50 mg tablet 50 mg PO DAILY #90 tabs 06/19/24 06/06/25 Rx montelukast 10 mg tablet 10 mg PO DAILY 06/19/24 06/06/25 History albuterol sulfate 90 mcg/actuation 1 puff inhalation NEEDED PRN SOA 10/25/24 06/06/25 History aerosol inhaler biotin 1,250 mcg-collagen 50 1 tab PO DAILY 03/23/25 06/06/25 History mg-vit C 67.5 mg-vit E-herbal chew tablet cholecalciferol (vitamin D3) 10 10 mcg PO DAILY 03/23/25 06/06/25 History mcg (400 unit) capsule (Vitamin D3) zinc 10 mg tablet 10 mg PO DAILY 03/23/25 06/06/25 History amlodipine 5 mg tablet (Norvasc) 5 mg PO DAILY #90 tabs 04/10/25 06/06/25 Rx magnesium 1 tab PO DAILY 06/06/25 06/06/25 History psyllium husk 0.4 gram capsule 0.4 g PO DAILY 06/06/25 06/06/25 History New Prescriptions to Start Prescriptions: Allergies Allergy/AdvReac Type Severity Reaction Status Date / Time hydrochlorothiazide AdvReac Severe Other Verified 06/06/25 10:10 Exam *Routine HEENT Exam Head: Present normocephalic Eye: Present EOMI and PERRL ENT: Present mucous membranes moist *Routine Neck Exam Neck: Present supple *Routine Respiratory Exam Respiratory: Present CTA bilaterally *Routine Cardiovascular Exam Cardiovascular: Present RRR *Routine Abdominal Exam Abdominal: Present soft and normoactive bowel sounds; Absent tenderness *Routine Rectal Exam Rectal:: deferred *Routine Genitalia Exam Genitalia:: deferred *Routine Extremities Exam Extremities: Absent cyanosis, clubbing or edema *Routine Skin Exam Skin: Present warm; Absent rash *Routine Neurological Exam Neurological: Present alert and oriented X3 Assessment and Plan *Assessment and plan (1) Gastroesophageal reflux disease: Status: Acute Category: Medical Code(s): K21.9 - Gastro-esophageal reflux disease without esophagitis (2) Heartburn: Status: Acute Category: Medical Code(s): R12 - Heartburn (3) Bloating: Status: Acute Category: Medical Code(s): R14.0 - Abdominal distension (gaseous) Plan A/P: 1. Chronic GERD with persistent heartburn and bloating is the preprocedural diagnosis. The patient will be anesthetized/sedated using MAC sedation. The patient has been seen and examined. Cardiac and lung assessment prior to the examination is stable. Proceed with planned diagnostic EGD.
--- NOTE | 2025-06-06 06:32 | P.PCN_ITS ---
[facility] Procedure Note Date: 06/06/25 Time: 11:46 Procedure Note:: Upper Endoscopy Procedure Report: Esophagogastroduodenoscopy with cold biopsies Endoscopost: Keith Rothman II, MD Referring Physician: Humza Echols MD Date of Procedure: June 06, 2025 Equipment: Olympus [id number] standard upper endoscope Sedation: MAC sedation Indications: Mrs. Sinclair is a 69-year-old female who is here for diagnostic EGD. She has had persistent heartburn. This mostly occurs when she is supine at nighttime. She is not on PPI therapy but does take Tums and [place]athalie[place]. She has had a lot of belching, bloating and early satiety. She reports no nausea or abdominal pain. She has had chronic GERD for years. The patient reports no dysphagia. She did have an EGD with Shane Telles MD in April 2023 and this was reportedly entirely normal. The patient did have a colonoscopy with [facility] in A ust 2024 and had extensive left-sided diverticulosis and a single benign cecal polyp (hyperplastic polyp) which was removed. The patient is now fully committed to dietary measures and psyllium Konsyl and has improved. The examination is deemed medically necessary for diagnostic EGD. Procedure: Prior to the procedure, a history and physical exam was performed, and patient's medications and allergies were reviewed. The risks, benefits and alternatives of the sedation and procedure were discussed with the patient. All questions were answered and informed consent was obtained. The patient was brought to the procedure room. Patient identification and proposed procedure were verified by the physician and the nurse. The patient was placed in a left lateral decubitus position and the scope was passed under direct vision. Throughout the procedure, the patient's blood pressure, pulse, and oxygen saturations were monitored continuously. The upper GI endoscopy was accomplished without difficulty. The patient tolerated the procedure well. Findings: The scope was passed directly into the upper esophagus and advanced to the third portion of the duodenum. The post bulbar duodenum, ampulla and duodenal bulb were normal with normal mucosa and conniventes. 2 cold biopsies were taken from the second portion of the duodenum for the disaccharidase assay. The scope was withdrawn through a normal duodenal bulb and pylorus into the stomach. There was mild to moderate linear reactive gastropathy of the antrum. The body and fundus of the stomach were normal. Cold biopsies were taken from the antrum. Upon retroflexion there was a small 1 to 2 cm hiatal hernia. The scope was then withdrawn into the esophagus. There was evidence of grade B (LA classification) reflux esophagitis with linear superficial erosions distally. There was no evidence of Foreman's esophagus but some mild distal corrugation. The remainder of the esophageal mucosa was normal. Impression: 1. Grade B reflux esophagitis (LA classification) with small 1 to 2 cm hiatal hernia 2. Mild to moderate linear reactive gastropathy Plan: The patient does have complicated GERD (reflux esophagitis) and would benefit from PPI therapy or Vo[place]. I will discuss this with the patient and family. I also feel that she has some gas driven reflux and we will discuss additional treatment options. I will follow-up the disaccharidase assay.
[2025-06-06 10:06] VITALS: BMI 26.6
[2025-06-06 10:16] VITALS: BP 129/68; PULSE 71; RESP 18; TEMP 36.6; O2SAT 97
[2025-06-06] MEDS: LACTATED RINGERS 1000ML 1,000 ML 50 ML IV (10:24)
--- NOTE | 2025-06-06 10:51 | P.PNANES_ITS ---
[facility] Disclaimer: The information contained in this section may have been updated after the patient was seen, as this information can be updated by other users. Medical History Hyponatremia Glaucoma History of cataract Generalized anxiety disorder History of breast cancer Fluttering heart Palpitations Fatigue Dizziness Dyspnea Chest pain Left carotid bruit Acid reflux Surgical History History of lumpectomy of right breast History of colonoscopy Family History Father Coronary artery disease Stroke Mother Cancer Sister Cancer, Onset Age: 65 breast Social History (Updated 06/06/25 @ 10:09 by Marcela Colon RN) Smoking Status: Former smoker second hand exposure: No alcohol intake: current alcohol intake frequency: a few times a week substance use type: former substance user and marijuana current occupational status: retired Travel in the last 8 weeks?: None ([place]) household members: none housing: house current occupational exposures/hazards: No caffeine: Yes Have you lived/traveled outside US in past 30 days?: No Contact w/someone who lives/traveled outside US past 30 days?: No Exposure to someone with infectious disease in past 14 days?: No Do you have a fever (greater than 100.4 F or 38 C)?: No Have you tested positive for COVID-19?: No Exposed to someone with COVID-19 in past 14 days?: No Do you have a sore throat?: No Do you have a cough?: No Do you have any weakness?: No Are you experiencing any nausea/vomitting?: No Do you have any diarrhea?: No Are you experiencing any unusual bleeding?: No Do you have any muscle aches/pain?: No Do you have any abdominal pain?: No Are you experiencing loss of taste or smell?: No [facility] Anesthesia Checklist Patient Identification Patient Identification: Arm Band Structural Data Admitted From: Home Planned Operative Procedure/s: EGD Consent for Planned Operative Procedure(s) Verified: Yes Verified Documents: Surgical Consent and History and Physical NPO Status Verified Time NPO: 00:00 Additional verifications Anesthesia Reactions: No Airway Assessment Mallampati Score:: Class II C-Spine Mobility Assessed: Yes TMJ Mobility Assessed: Yes Dentition: Good Dentition Neurological Assessment Level of Consciousness: Awake, Alert and Appropriate Anesthesia Plan Anesthesia Risk discussed: Yes Anesthesia Plan: Verified ASA Class: II Anesthesia Type: MAC
[2025-06-06 11:48] VITALS: BP 109/67; PULSE 75; RESP 16; TEMP 36.6; O2SAT 93
[2025-06-06 11:58] VITALS: BP 121/52; PULSE 71; RESP 16; TEMP 36.6; O2SAT 97
[2025-06-06 12:08] VITALS: BP 138/75; PULSE 74; RESP 17; TEMP 36.6; O2SAT 97
[2025-06-06 12:18] VITALS: BP 143/72; PULSE 66; RESP 17; TEMP 36.6; O2SAT 99
[2025-06-11 12:16] LABS: Interpretation Notes (.); Lactase 1.11 (>/= 14.0); Maltase 66.4 (>/= 110.0); Palatinase 5.26 (>/= 8.5); Reference Notes (.); Sucrase 12.17 (>/= 25.0)
== END 2025-06-06 12:50 | disposition home or self-care (01) ==
PROVIDERS: PCP Family Medicine; Visit Provider Internal Medicine Gastroenterology
PROC: 0DJ08ZZ Inspection of Upper Intestinal Tract, Via Natural or Artificial Opening Endoscopic (ICD-10-PCS; CPT 43239; principal; 2025-06-06 11:00)
DX: K21.00 Gastro-esophageal reflux disease with esophagitis, without bleeding (principal); K31.89 Other diseases of stomach and duodenum; K44.9 Diaphragmatic hernia without obstruction or gangrene; Z87.891 Personal history of nicotine dependence; Z88.8 Allergy status to other drugs, medicaments and biological substances
CPT/HCPCS: 43239; 82657; 88305; J2003; J2704; J7120